=== PATIENT | male | born 1950 | race Caucasian/White ===

== ENCOUNTER 2016-04-14 12:07 | Inpatient (IN) | payer MEDICARE ==
[2016-04-14 13:21] LABS: Hematocrit 44 % (42-52); Hemoglobin 14.9 g/dl (14.0-18.0); Mean Corpuscular HGB Conc 34 g/dl (31-36); Mean Corpuscular Hemoglobin 30 pg (27-31); Mean Corpuscular Volume 88 fL (80-94); Mean Platelet Volume 10 um3 (7.4-10.4); Red Blood Count 4.98 10^6/ul (4.0-5.4); Red Cell Distribution Width 13 % (10.5-15)
[2016-04-14] MEDS: NS 0.9% 1000 ML* 2,000 ML IV ONE ×2 (13:33→16:29)
--- NOTE | 2016-04-14 13:37 | RAD ---
INDICATION: Confusion, pneumonia. COMPARISON: Comparison is made with a prior CT of the chest from June 25, 2004. TECHNIQUE: A portable view of the chest was obtained. FINDINGS: The heart is within normal limits in size. There is a retrocardiac density which correlates with a hiatal hernia which is seen on the prior CT study which is [id number] in size and unchanged from the prior exam. The lungs are clear. No pleural effusion is seen. IMPRESSION: 1. NO EVIDENCE FOR ACUTE FINDING. 2. HIATAL HERNIA.
[2016-04-14 13:42] LABS: ALT 16 U/L (7-52); AST 17 U/L (13-39); Alkaline Phosphatase 56 U/L (34-104); Anion Gap 5 mmol/L (2-11); BUN/Creatinine Ratio 14.9 (8-20); Blood Urea Nitrogen 11 mg/dL (6-24); CO2 Carbon Dioxide 27 mmol/L (22-32); Calcium 9.5 mg/dL (8.6-10.3); Chloride 106 mmol/L (101-111); Creatine Kinase 146 U/L (10-223); EGFR African American 136.5 (>60); EGFR Non-African American 106.2 (>60); Globulin 2.4 g/dL (2-4); Glucose 102 mg/dL (70-100); Magnesium 2.2 mg/dL (1.9-2.7); Sodium 138 mmol/L (133-145); Total Protein 6.4 g/dL (6.4-8.9)
--- NOTE | 2016-04-14 13:42 | RAD ---
HISTORY: Confusion, falls COMPARISONS: MRI dated September 18, 2015 TECHNIQUE: Multiple contiguous axial CT scans were obtained of the head without intravenous contrast. FINDINGS: HEMORRHAGE/INFARCT: There is no hemorrhage or acute infarct. MASSES/SHIFT: There is no mass or shift. EXTRA-AXIAL SPACES: There are no extra-axial fluid collections. SULCI AND VENTRICLES: There is mild diffuse and proportional enlargement of the sulci and ventricles. CEREBRUM: There are no focal parenchymal abnormalities. BRAINSTEM: There are no focal parenchymal abnormalities. CEREBELLUM: There are no focal parenchymal abnormalities. VESSELS: The vessels are grossly normal. PARANASAL SINUSES: The paranasal sinuses are clear. ORBITS: The orbits are unremarkable. BONES AND SOFT TISSUE: No bone or soft tissue abnormalities are noted. OTHER: None IMPRESSION: NO ACUTE INTRACRANIAL PATHOLOGY.
[2016-04-14 13:44] LABS: Troponin I 0.01 ng/mL (<0.04)
[2016-04-14 13:53] LABS: Acetaminophen < 15 mcg/mL; Alcohol < 10 mg/dL (<10); Salicylate < 2.50 mg/dL (<30)
[2016-04-14 14:03] LABS: TSH (Thyroid Stimulating Horm) 0.67 mcIU/mL (0.34-5.60)
[2016-04-14 15:55] LABS: Urine Bilirubin Negative (Negative); Urine Glucose Negative (Negative); Urine Nitrite Negative (Negative)
[2016-04-14 16:13] LABS: Benzodiazepine Urine Screen None Detected (None Detect)
--- NOTE | 2016-04-14 17:20 | ADMNOTE ---
Subjective Date of Service: 04/14/16 Interval History: ADMISSION HISTORY AND PHYSICAL EXAM: Allergies Allergy/AdvReac Type Severity Reaction Status Date / Time BEES Allergy Intermediate Swelling Uncoded 04/13/15 15:59 Home Medications Medication Instructions Recorded Confirmed Type Aspirin EC Low Dose* [Ecotrin EC 81 mg PO DAILY 04/14/16 04/14/16 History Low Dose 81 MG*] Metoprolol Succinate XL TAB* 25 mg PO DAILY 04/14/16 04/14/16 History [Toprol XL TAB*] Simvastatin TAB(NF) [Zocor(NF)] 20 mg PO BEDTIME 04/14/16 04/14/16 History HPI: The patient has had increasing difficulty managing ADL. He could not walk to the bus stop to go see his doctor but fell down before he got to the bus stop and his friend brought him home instead. He has see Dr. Blanc a few times but no definite dx was given. He gets 1 meal a day from [employer] and makes his other meals, but told his friend Janna that he was having a lot of trouble making a peanut butter sandwich. Janna thinks he may have lost some weight. Family History: Findings - unremarkable. Social History: Findings - Never smoked. Binge drinker until 06/2015. Lives alone. SDM is his daughter Patrica at [phone] Past Medical History: Findings - Cardiac stent 2000, cataract x 2, retinitis pigmentosa, cholecystectomy. Skin cancer followed by Dr. Grewal. 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 Thyroid: Positive: Normal Pulmonary: Positive: Normal Cardiology: Positive: Normal Gastroenterology: Positive: Normal Musculoskeletal: Negative: Joint Pain, Joint Stiffness, Arthritis, Osteoporosis, Low Back Pain , Sciatica, Joint Deformities, Kyphoscoliosis, Other Endocrinology: Positive: Normal Hematologic/Lymphatic: Negative: Anemia, Easy Brusing, Hx Leukemia, Hx Lymphoma, Use of Anticoagulant, Use of Antiplatelet Drugs, Other Neurology: Positive: Change in Memory, Unexplained Weakness Psychiatry: Positive: Normal Allergic/Immunologic: Negative: Hx Anaphylaxis, Hx Angioedema, Hx Environmental, Hx Seasonal, Athsma, Hx HIV, Immunocompromise, Swollen Glands LymphNodes, Other Objective Active Medications: Aspirin (Aspirin Ec Low Dose*) 81 mg PO DAILY [facility] Enoxaparin Sodium (Lovenox(*)) 40 mg SUBCUT Q24H [facility] Metoprolol Succinate (Toprol Xl Tab*) 25 mg PO DAILY [facility] Vital Signs 04/14/16 04/14/16 04/14/16 12:11 12:26 12:27 Temperature 98.2 F Pulse Rate 74 73 Respiratory 18 0 Rate Blood Pressure 148/88 135/80 (mmHg) O2 Sat by Pulse 95 97 Oximetry 04/14/16 04/14/16 04/14/16 12:30 13:00 13:43 Temperature Pulse Rate 75 78 Respiratory Rate Blood Pressure 136/74 140/84 149/82 (mmHg) O2 Sat by Pulse 95 96 Oximetry 04/14/16 04/14/16 04/14/16 13:46 13:49 13:52 Temperature Pulse Rate 81 83 83 Respiratory Rate Blood Pressure 150/93 145/86 145/86 (mmHg) O2 Sat by Pulse 97 99 Oximetry 04/14/16 04/14/16 04/14/16 14:00 14:30 15:00 Temperature Pulse Rate 86 88 88 Respiratory Rate Blood Pressure 153/84 151/88 147/84 (mmHg) O2 Sat by Pulse 98 98 96 Oximetry 04/14/16 04/14/16 04/14/16 15:30 16:00 16:30 Temperature Pulse Rate 83 Respiratory Rate Blood Pressure 150/81 152/90 152/105 (mmHg) O2 Sat by Pulse 97 Oximetry 04/14/16 16:32 Temperature Pulse Rate Respiratory Rate Blood Pressure 156/92 (mmHg) O2 Sat by Pulse Oximetry Oxygen Devices in Use Now: None Appearance: Alert, partly up on ED stretcher. Neutral affect. Looks comfortable. Eyes: No Scleral Icterus Ears/Nose/Mouth/Throat: Clear Oropharnyx, Mucous Membranes Moist Neck: NL Appearance and Movements; NL JVP, No Thyroid Enlargement, Masses Respiratory: Symmetrical Chest Expansion and Respiratory Effort, Clear to Auscultation, Clear to Percussion Cardiovascular: NL Sounds; No Murmurs; No JVD, RRR, No Edema, - Abdominal: NL Sounds; No Tenderness; No Distention, No Hepatosplenomegaly, - Extremities: No Edema, No Clubbing, Cyanosis, - Skin: No Nodules or Sclerosis, - - multiple red patches face and upper body, very fair complexion Neurological: Alert and Oriented x 3, NL Sensation, - - Can't count fingers, can see faces. No tremor. Result Diagrams: 04/14/16 13:00 04/14/16 13:00 Assess/Plan/Problems-Billing Assessment: - Patient Problems (1) Gait abnormality Current Visit: Yes Status: Acute Code(s): R26.9 - UNSPECIFIED ABNORMALITIES OF GAIT AND MOBILITY SNOMED Code(s): 67606003 Comment: PT charo. Neuro consult. (2) CAD (coronary artery disease) Current Visit: Yes Status: Acute Code(s): I25.10 - ATHSCL HEART DISEASE OF [place] CORONARY ARTERY W/O ANG PCTRS SNOMED Code(s): 89233445 Comment: Continue ASA, BB. Statin recently stopped due to concern over muscle weakness. I will ask Dr. Galevz if it is OK to re-start simvastatin 20 mg hs. (3) Retinitis pigmentosa Current Visit: Yes Status: Acute Code(s): H35.52 - PIGMENTARY RETINAL DYSTROPHY SNOMED Code(s): 47487174 Comment: Can see faces, can't count fingers. (4) Speaking difficulty Current Visit: Yes Status: Acute Comment: Speech is slow and dysarthric. Speech therapy consult requested.
--- NOTE | 2016-04-14 17:44 | ED ---
Reinaldo Cunha Billy, scribed for Caleb Caldwell MD on 04/14/16 at 1246 . Complex/Multi-Sys Presentation - HPI Summary HPI Summary: Patient is a 65 year-old male coming to [facility] from Dr. Blanc's office for evaluation of weakness, frequent falls, dizziness, and AMS gradually worsening over the last 3 weeks. Patient, however, denies any significant pain or injury due to the falls. He recently was taken off of his statins and azilect. Denies any dizziness or lightheadedness at this time. Denies nausea. He states he has had an unsteady gait, but this has been ongoing for the last year. He reports increased urinary frequency. He states he has been spending time with his brother in the last several weeks, although the aide states that these are hallucinations since the patient has not seen his brother in 25 years. Patient is legally blind. - History Of Current Complaint Chief Complaint: EDWeakness Time Seen by Provider: 04/14/16 12:21 Hx Obtained From: Patient, Family/Surgeon Partner Onset/Duration: Gradual Onset, Lasting Weeks, Still Present Timing: Constant Severity Currently: Moderate Severity Initially: Moderate Aggravating Factor(s): none Alleviating Factor(s): none Associated Signs And Symptoms: Positive: Weakness, Other - unsteady gait, urinary frequency. Negative: Dizziness, Headache, Chest Pain, Nausea - Allergies/Home Medications Allergies/Adverse Reactions: Allergies Allergy/AdvReac Type Severity Reaction Status Date / Time BEES Allergy Intermediate Swelling Uncoded 04/13/15 15:59 Home Medications: Home Medications Aspirin EC Low Dose* [Ecotrin EC Low Dose 81 MG*] 81 mg PO DAILY 04/14/16 [ History Confirmed 04/14/16] Metoprolol Succinate XL TAB* [Toprol XL TAB*] 25 mg PO DAILY 04/14/16 [History Confirmed 04/14/16] Simvastatin TAB(NF) [Zocor(NF)] 20 mg PO BEDTIME 04/14/16 [History Confirmed 10/23] PMH/Surg Hx/FS Hx/Imm Hx Endocrine/Hematology History: Denies: Hx Diabetes, Hx Systemic Lupus Erythematosus Cardiovascular History: Denies: Hx Congestive Heart Failure, Hx Hypertension, Hx Pacemaker/ICD Respiratory History: Reports: Hx Sleep Apnea - HISTORY OF DOESN'T USE A MACHINE Musculoskeletal History: Denies: Hx Rheumatoid Arthritis Sensory History: Reports: Hx Cataracts - CURRENTLY, Hx Contacts or Glasses - GLASSES Denies: Hx Hearing Aid Opthamlomology History: Reports: Hx Cataracts - CURRENTLY, Hx Contacts or Glasses - GLASSES Psychiatric History: Denies: Hx Panic Disorder - Cancer History Cancer Type, Location and Year: skin CA - Surgical History Surgery Procedure, Year, and Place: CHOLECYSECTOMY 2009 [facility] [place]. CARDIAC STENT 2000 [facility]. excisional biopsy of skin CA right collar bone, skin ca removed right cheek and skull cateract surgury 2 yrs ago. RP DISEASE DIGANOSED IN THE YEAR 1979 Hx Anesthesia Reactions: No Infectious Disease History: No Infectious Disease History: Denies: Traveled Outside the in Last 30 Days - Family History Known Family History: Positive: Cardiac Disease - Social History Lives: Alone Alcohol Use: Occasionally Substance Use Type: Reports: None Hx Tobacco Use: No Smoking Status (MU): Never Smoked Tobacco Review of Systems Negative: Fever, Chills Positive: Other - legally blind Negative: Abdominal Pain, Vomiting, Diarrhea, Nausea Positive: frequency Negative: Edema Neurological: Other - unsteady gait Negative: Headache Psychological: Other - hallucinations (see HPI) All Other Systems Reviewed And Are Negative: Yes Physical Exam - Summary Physical Exam Summary: The patient is well-nourished in no acute distress and in no acute pain. The skin is warm and dry and skin color reflects adequate perfusion. HEENT: The head is normocephalic and atraumatic. The conjunctivae are clear and without drainage. Pupils not reactive to light, EOMI not assessed. Nares are patent with rhinorrhea. Mouth reveals moist mucous membranes and the throat is without erythema and exudate. The external ears are intact. The ear canals are patent and without drainage. The tympanic membranes are intact. No sinus percussion tenderness. Neck is supple with full range of motion and non-tender. There are no carotid bruits. There is no neck vein distension. Respiratory: Chest is non-tender. Lungs are clear to auscultation and breath sounds are symmetrical and equal. Cardiovascular: Heart is regular rate and rhythm. There is no murmur or rub auscultated. There is no peripheral edema and pulses are symmetrical and equal. Abdomen: The abdomen is soft and non-tender. There are normal bowel sounds heard in all four quadrants and there is no organomegaly palpated. Musculoskeletal: There is no back pain noted. Extremities are non-tender with full range of motion. There is good capillary refill, <2 seconds. There is mild ankle edema bilaterally. No calf tenderness elicited. Neurological: Patient is alert and oriented to person, place and time. The patient has symmetrical motor strength in all four extremities. Cranial nerves are grossly intact. [id number] and wddk-[id number] intact. No facial droop. Some mild confusion when answering questions. Psychiatric: The patient has an appropriate affect and does not exhibit any anxiety or depression. Triage Information Reviewed: Yes Vital Signs On Initial Exam: Initial Vitals Temp Pulse Resp BP Pulse Ox 98.2 F 74 18 148/88 95 04/14/16 12:11 04/14/16 12:11 04/14/16 12:11 04/14/16 12:11 04/14/16 12:11 Vital Signs Reviewed: Yes Diagnostics - Vital Signs Vital Signs Temp Pulse Resp BP Pulse Ox 04/14/16 12:11 98.2 F 74 18 148/88 95 - Laboratory Lab Results: Lab Results 04/14/16 04/14/16 04/14/16 Range/Units 13:00 13:00 13:00 WBC 6.0 (3.5-10.8) 10^3/ul RBC 4.98 (4.0-5.4) 10^6/ul Hgb 14.9 (14.0-18.0) g/dl Hct 44 (42-52) % MCV 88 (80-94) fL MCH 30 (27-31) pg MCHC 34 (31-36) g/dl RDW 13 (10.5-15) % Plt Count 189 (150-450) 10^3/ul MPV 10 (7.4-10.4) um3 Neut % (Auto) 68.9 (38-83) % Lymph % (Auto) 21.9 L (25-47) % [place] % (Auto) 7.5 (1-9) % Eos % (Auto) 1.2 (0-6) % Baso % (Auto) 0.5 (0-2) % Absolute Neuts (auto) 4.1 (1.5-7.7) 10^3/ul Absolute Lymphs (auto) 1.3 (1.0-4.8) 10^3/ul Absolute Monos (auto) 0.4 (0-0.8) 10^3/ul Absolute Eos (auto) 0.1 (0-0.6) 10^3/ul Absolute Basos (auto) 0 (0-0.2) 10^3/ul Absolute Nucleated RBC 0.01 10^3/ul Nucleated RBC % 0.2 INR (Anticoag Therapy) 0.97 (0.89-1.11) Sodium 138 (133-145) mmol/L Potassium 4.0 (3.5-5.0) mmol/L Chloride 106 (101-111) mmol/L Carbon Dioxide 27 (22-32) mmol/L Anion Gap 5 (2-11) mmol/L BUN 11 (6-24) mg/dL Creatinine 0.74 (0.67-1.17) mg/dL Est GFR ( Amer) 136.5 (>60) Est GFR (Non-Af Amer) 106.2 (>60) BUN/Creatinine Ratio 14.9 (8-20) Glucose 102 H (70-100) mg/dL Lactic Acid (0.5-2.0) mmol/L Calcium 9.5 (8.6-10.3) mg/dL Magnesium 2.2 (1.9-2.7) mg/dL Total Bilirubin 0.70 (0.2-1.0) mg/dL AST 17 (13-39) U/L ALT 16 (7-52) U/L Alkaline Phosphatase 56 (34-104) U/L Total Creatine Kinase 146 (10-223) U/L Troponin I 0.01 (<0.04) ng/mL B-Natriuretic Peptide ( - 100) pg/mL Total Protein 6.4 (6.4-8.9) g/dL Albumin 4.0 (3.2-5.2) g/dL Globulin 2.4 (2-4) g/dL Albumin/Globulin Ratio 1.7 (1-3) TSH 0.67 (0.34-5.60) mcIU/mL Urine Color Urine Appearance Urine pH (5-9) Ur Specific [place] (1.010-1.030) Urine Protein (Negative) Urine Ketones (Negative) Urine Blood (Negative) Urine Nitrate (Negative) Urine Bilirubin (Negative) Urine Urobilinogen (Negative) Ur Leukocyte Esterase (Negative) Urine Glucose (Negative) Urine Ascorbic Acid (Negative) Salicylates < 2.50 (<30) mg/dL Urine Opiates Screen (None Detect) Acetaminophen < 15 mcg/mL Ur Barbiturates Screen (None Detect) Ur Phencyclidine Scrn (None Detect) Ur Amphetamines Screen (None Detect) U Benzodiazepines Scrn (None Detect) Urine Cocaine Screen (None Detect) U Cannabinoids Screen (None Detect) Serum Alcohol < 10 (<10) mg/dL 04/14/16 04/14/16 04/14/16 Range/Units 13:00 13:00 15:43 WBC (3.5-10.8) 10^3/ul RBC (4.0-5.4) 10^6/ul Hgb (14.0-18.0) g/dl Hct (42-52) % MCV (80-94) fL MCH (27-31) pg MCHC (31-36) g/dl RDW (10.5-15) % Plt Count (150-450) 10^3/ul MPV (7.4-10.4) um3 Neut % (Auto) (38-83) % Lymph % (Auto) (25-47) % [place] % (Auto) (1-9) % Eos % (Auto) (0-6) % Baso % (Auto) (0-2) % Absolute Neuts (auto) (1.5-7.7) 10^3/ul Absolute Lymphs (auto) (1.0-4.8) 10^3/ul Absolute Monos (auto) (0-0.8) 10^3/ul Absolute Eos (auto) (0-0.6) 10^3/ul Absolute Basos (auto) (0-0.2) 10^3/ul Absolute Nucleated RBC 10^3/ul Nucleated RBC % INR (Anticoag Therapy) (0.89-1.11) Sodium (133-145) mmol/L Potassium (3.5-5.0) mmol/L Chloride (101-111) mmol/L Carbon Dioxide (22-32) mmol/L Anion Gap (2-11) mmol/L BUN (6-24) mg/dL Creatinine (0.67-1.17) mg/dL Est GFR ( Amer) (>60) Est GFR (Non-Af Amer) (>60) BUN/Creatinine Ratio (8-20) Glucose (70-100) mg/dL Lactic Acid 0.9 (0.5-2.0) mmol/L Calcium (8.6-10.3) mg/dL Magnesium (1.9-2.7) mg/dL Total Bilirubin (0.2-1.0) mg/dL AST (13-39) U/L ALT (7-52) U/L Alkaline Phosphatase (34-104) U/L Total Creatine Kinase (10-223) U/L Troponin I (<0.04) ng/mL B-Natriuretic Peptide 18 ( - 100) pg/mL Total Protein (6.4-8.9) g/dL Albumin (3.2-5.2) g/dL Globulin (2-4) g/dL Albumin/Globulin Ratio (1-3) TSH (0.34-5.60) mcIU/mL Urine Color Yellow Urine Appearance Cloudy Urine pH 6.0 (5-9) Ur Specific Emerson 1.019 (1.010-1.030) Urine Protein Negative (Negative) Urine Ketones Negative (Negative) Urine Blood Negative (Negative) Urine Nitrate Negative (Negative) Urine Bilirubin Negative (Negative) Urine Urobilinogen Negative (Negative) Ur Leukocyte Esterase Negative (Negative) Urine Glucose Negative (Negative) Urine Ascorbic Acid * H (Negative) Salicylates (<30) mg/dL Urine Opiates Screen (None Detect) Acetaminophen mcg/mL Ur Barbiturates Screen (None Detect) Ur Phencyclidine Scrn (None Detect) Ur Amphetamines Screen (None Detect) U Benzodiazepines Scrn (None Detect) Urine Cocaine Screen (None Detect) U Cannabinoids Screen (None Detect) Serum Alcohol (<10) mg/dL 04/14/16 Range/Units 15:43 WBC (3.5-10.8) 10^3/ul RBC (4.0-5.4) 10^6/ul Hgb (14.0-18.0) g/dl Hct (42-52) % MCV (80-94) fL MCH (27-31) pg MCHC (31-36) g/dl RDW (10.5-15) % Plt Count (150-450) 10^3/ul MPV (7.4-10.4) um3 Neut % (Auto) (38-83) % Lymph % (Auto) (25-47) % [place] % (Auto) (1-9) % Eos % (Auto) (0-6) % Baso % (Auto) (0-2) % Absolute Neuts (auto) (1.5-7.7) 10^3/ul Absolute Lymphs (auto) (1.0-4.8) 10^3/ul Absolute Monos (auto) (0-0.8) 10^3/ul Absolute Eos (auto) (0-0.6) 10^3/ul Absolute Basos (auto) (0-0.2) 10^3/ul Absolute Nucleated RBC 10^3/ul Nucleated RBC % INR (Anticoag Therapy) (0.89-1.11) Sodium (133-145) mmol/L Potassium (3.5-5.0) mmol/L Chloride (101-111) mmol/L Carbon Dioxide (22-32) mmol/L Anion Gap (2-11) mmol/L BUN (6-24) mg/dL Creatinine (0.67-1.17) mg/dL Est GFR ( Amer) (>60) Est GFR (Non-Af Amer) (>60) BUN/Creatinine Ratio (8-20) Glucose (70-100) mg/dL Lactic Acid (0.5-2.0) mmol/L Calcium (8.6-10.3) mg/dL Magnesium (1.9-2.7) mg/dL Total Bilirubin (0.2-1.0) mg/dL AST (13-39) U/L ALT (7-52) U/L Alkaline Phosphatase (34-104) U/L Total Creatine Kinase (10-223) U/L Troponin I (<0.04) ng/mL B-Natriuretic Peptide ( - 100) pg/mL Total Protein (6.4-8.9) g/dL Albumin (3.2-5.2) g/dL Globulin (2-4) g/dL Albumin/Globulin Ratio (1-3) TSH (0.34-5.60) mcIU/mL Urine Color Urine Appearance Urine pH (5-9) Ur Specific [place] (1.010-1.030) Urine Protein (Negative) Urine Ketones (Negative) Urine Blood (Negative) Urine Nitrate (Negative) Urine Bilirubin (Negative) Urine Urobilinogen (Negative) Ur Leukocyte Esterase (Negative) Urine Glucose (Negative) Urine Ascorbic Acid (Negative) Salicylates (<30) mg/dL Urine Opiates Screen None detected (None Detect) Acetaminophen mcg/mL Ur Barbiturates Screen None detected (None Detect) Ur Phencyclidine Scrn None detected (None Detect) Ur Amphetamines Screen None detected (None Detect) U Benzodiazepines Scrn None detected (None Detect) Urine Cocaine Screen None detected (None Detect) U Cannabinoids Screen None detected (None Detect) Serum Alcohol (<10) mg/dL Result Diagrams: 04/14/16 13:00 04/14/16 13:00 Lab Statement: Any lab studies that have been ordered have been reviewed, and results considered in the medical decision making process. - Radiology CXR Xray Interpretation: No Acute Changes Radiology Interpretation Completed By: Radiologist - CT brain CT Interpretation Completed By: Radiologist - No evidence of acute findings. Hiatal hernia. - EKG 1241 EKG Interpretation: NSR 75 bpm, no ST elevation, poor R-wave progression Complex Multi-Symp Course/Dx Assessment/Plan: Patient is a 65 year-old male coming to [facility] from Dr. Blanc 's office for evaluation of weakness, frequent falls, dizziness, and AMS gradually worsening over the last [address] brain show no acute findings. EKG shows NSR with poor R-wave progression, no ST elevation. Case discussed with Dr. Murphy and Dr. Galvez. - Diagnoses Differential Diagnoses/HQI/PQRI: Metabolic Abnormality, Urinary Tract Infection , Other - cva, parkinson's, ambulatory dysfunction Provider Diagnoses: Altered mental status, unspecified, Ambulatory dysfunction, Failure to thrive - Physician Notifications Discussed Care Of Patient With: Dr. Murphy (hospitalist) @ 1511: recommends neurology consult. Dr. Galvez (neurology) @ 1514: will see patient in the ED. Dr. Galvez (neurology) @ 1605: recommends admission. Discharge - Discharge Plan Condition: Stable Disposition: ADMITTED TO [facility] Referrals: Mahi Lopez MD [Primary Care Provider] - The documentation as recorded by the Reinaldo mancuso Billy accurately reflects the service I personally performed and the decisions made by me, Caleb Caldwell MD.
[2016-04-14] MEDS: Enoxaparin(*) 40 MG/0.4 ML SYR SUBCUT SCH (21:35)
--- NOTE | 2016-04-14 22:39 | CONS ---
NEUROLOGY CONSULTATION: DATE OF CONSULT: 04/14/16 LOCATION: He is in emergency room to be admitted. REFERRING PROVIDER: Dr. Caleb Caldwell. CHIEF COMPLAINT: Repetitive falls, hallucinations. HISTORY OF PRESENT ILLNESS: Ciro Abrams is a 65-year-old right-handed man, who presents because of progressive and accelerating decline in his cognitive and extrapyramidal disorder. The history is from the patient as well as discussion with Dr. Blanc and from office records. His friend is also present, provides good detail. He started having problems with his vision back in May of 2015 secondary to retinitis pigmentosa. That progressed to where he was legally blind by later in 2015. In addition, he started to have problems with repetitive falls. He was found to have features of an extrapyramidal disorder by Dr. Blanc when he evaluated him, I believe, back in about September. He had an MRI of his brain at that time, which revealed some atrophy and nonspecific white matter changes. He had a number of other laboratory studies including a normal B12, methylmalonic acid, serum protein electrophoresis, and other routine labs, which were normal. He had a perineoplastic antibody profile on 09/18/15, which was negative. He had a negative test for neurosyphilis on 09/18/15 as well. He continued to decline and developed memory problems and ultimately hallucinations and delusions. His friend says that he sees his brother in their apartment and has conversations with him. Ciro admits to seeing things, mainly consisting of his brother, but he says they do not speak to him. He has had repetitive falls and he says he cannot stop going forward. With specific questioning, he notes that his left arm is slow and clumsy and does not work as well as his right Apparently, tremor has not been much of a problem. He denies problems with swallowing or choking. PAST MEDICAL HISTORY: Notable for squamous cell carcinoma of the skin, hyperlipidemia. MEDICATIONS: At home, consist of: 1. Aspirin 81 mg p.o. q. day. 2. Metoprolol XL 20 mg p.o. q. day. 3. He was on Aricept but that was stopped recently. 4. He was on a statin and that was stopped about 3 weeks ago because of what appeared to be progressive weakness. FAMILY HISTORY: Notable for retinitis pigmentosa in a nephew. One sister has multiple sclerosis. REVIEW OF SYSTEMS: Negative for numbness or pain in his feet or hands. No problems with swallowing. He does get short of breath at times. No dizziness but they do use the term dizzy to describe his falls at times. He does not feel faint or experience vertigo, however. PHYSICAL EXAM: He is well nourished and seems relatively well hydrated. Blood pressure is 160/90 on the monitor, heart rate 80 and regular, respiratory rate is about 14. Oxygen saturation is 99% on room air. Heart sounds to be in a regular rate and rhythm without murmurs heard. There are no carotid bruits auscultated. Oral mucosa is moist and atraumatic. He has bilateral 1+ ankle edema. He has hammertoe deformities bilaterally. Neurologic Exam: Pupils react to light from about 3 to 2 mm. I cannot see the right fundus due to bubbly opacity of the right lens. The left fundus reveals spiculated black pigment throughout the retina. Eye movements seem somewhat limited in downgaze but otherwise are full. There is no nystagmus. Facial musculature is symmetric with grade 3 hypomimia. Facial sensation to light touch is intact. Hearing seems intact. Palate and tongue appear normal, tongue protrudes in the midline. Speech is soft and monotone. Motor exam reveals cogwheel rigidity particularly of the left arm and leg, to a lesser extent the right leg, and to the least extent the right arm. There is no tremor noted. There is a 90-degree left ankle contracture. He has good strength proximally and distally in upper extremities. Finger taps are slower in the left hand than the right. There are no dyskinesias noted. Reflexes are hypoactive and absent at the ankles. Plantars are equivocal bilaterally. He is relatively alert, but psychomotorically slow. He answers questions with reasonable answers but his friend has to correct him at times. Language is generally decreased in output but fluent. DIAGNOSTIC STUDIES/LAB DATA: Includes a normal CBC, INR, and chemistry profile other than a nonfasting glucose of 102. Earlier this year, other studies mentioned above, which are normal. A urinalysis today is normal. EKG is unremarkable. He had a negative perineoplastic antibody profile as mentioned above. Chest x-ray today notable for evidence of hiatal hernia, and is otherwise unremarkable. MRI from last year as described above. CT scan from today revealed atrophy prominent bifrontally but also present in general. 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 Lewy body disease is a possibility as well. RECOMMENDATIONS: I do not see anything acute. However, with his blindness and parkinsonism and repeated falls, he is really not safe to go home. Discussed his situation with Dr. Caldwell and he is going to speak with the hospitalist about admitting for possible placement considerations. He might benefit from repeat MR imaging in terms of sorting out the etiology behind his neurodegenerative condition and at some point, he might benefit from a trial of Sinemet but these are longer- term issues and can be addressed in the future. CC: Dr. Mahi Lopez; Dr. Miguelina Blanc* [id number]/CPS #: [id number] [facility] STATE HOSPITALJessi
[2016-04-15] MEDS: Aspirin EC Low Dose* 81 MG TAB.EC PO SCH (07:43)
[2016-04-15] MEDS: Metoprolol Succinate XL TAB* 25 MG PO SCH (07:43)
--- NOTE | 2016-04-15 12:17 | PN ---
Subjective Date of Service: 04/15/16 Interval History: No new medical c/o. Pt would like to go home, states he can manage there. Family History: Findings - unremarkable. Social History: Findings - Never smoked. Binge drinker until 06/2015. Lives alone. SDM is his daughter Patrica at [phone] Past Medical History: Findings - Cardiac stent 2000, cataract x 2, retinitis pigmentosa, cholecystectomy. Skin cancer followed by Dr. Grewal. Objective Active Medications: Aspirin (Aspirin Ec Low Dose*) 81 mg PO DAILY [facility] Last Admin: 04/15/16 07:43 Dose: 81 mg Enoxaparin Sodium (Lovenox(*)) 40 mg SUBCUT Q24H [facility] Last Admin: 04/14/16 21:35 Dose: 40 mg Metoprolol Succinate (Toprol Xl Tab*) 25 mg PO DAILY [facility] Last Admin: 04/15/16 07:43 Dose: 25 mg Vital Signs 04/14/16 04/14/16 04/14/16 18:25 18:29 18:35 Temperature 98.1 F 98.1 F Pulse Rate 84 84 Respiratory 18 18 18 Rate Blood Pressure 161/93 161/93 (mmHg) O2 Sat by Pulse 98 98 Oximetry 04/14/16 04/14/16 04/15/16 20:00 23:28 03:07 Temperature 97.9 F Pulse Rate 73 Respiratory 20 20 18 Rate Blood Pressure 148/71 (mmHg) O2 Sat by Pulse 97 Oximetry 04/15/16 04/15/16 07:46 07:47 Temperature 98.1 F Pulse Rate 63 Respiratory 16 18 Rate Blood Pressure 141/78 (mmHg) O2 Sat by Pulse 97 Oximetry Oxygen Devices in Use Now: None Appearance: Alert, sitting up in bed. In fair spirits. Looks comfortable. Neck: NL Appearance and Movements; NL JVP, No Thyroid Enlargement, Masses Respiratory: Symmetrical Chest Expansion and Respiratory Effort, Clear to Auscultation, Clear to Percussion Cardiovascular: NL Sounds; No Murmurs; No JVD, RRR, No Edema, - Neurological: Alert and Oriented x 3, NL Sensation Result Diagrams: 04/14/16 13:00 04/14/16 13:00 Additional Lab and Data: Lab Results 04/14/16 04/14/16 04/14/16 Range/Units 13:00 13:00 13:00 WBC 6.0 (3.5-10.8) 10^3/ul RBC 4.98 (4.0-5.4) 10^6/ul Hgb 14.9 (14.0-18.0) g/dl Hct 44 (42-52) % MCV 88 (80-94) fL MCH 30 (27-31) pg MCHC 34 (31-36) g/dl RDW 13 (10.5-15) % Plt Count 189 (150-450) 10^3/ul MPV 10 (7.4-10.4) um3 Neut % (Auto) 68.9 (38-83) % Lymph % (Auto) 21.9 L (25-47) % [place] % (Auto) 7.5 (1-9) % Eos % (Auto) 1.2 (0-6) % Baso % (Auto) 0.5 (0-2) % Absolute Neuts (auto) 4.1 (1.5-7.7) 10^3/ul Absolute Lymphs (auto) 1.3 (1.0-4.8) 10^3/ul Absolute Monos (auto) 0.4 (0-0.8) 10^3/ul Absolute Eos (auto) 0.1 (0-0.6) 10^3/ul Absolute Basos (auto) 0 (0-0.2) 10^3/ul Absolute Nucleated RBC 0.01 10^3/ul Nucleated RBC % 0.2 INR (Anticoag Therapy) 0.97 (0.89-1.11) Sodium 138 (133-145) mmol/L Potassium 4.0 (3.5-5.0) mmol/L Chloride 106 (101-111) mmol/L Carbon Dioxide 27 (22-32) mmol/L Anion Gap 5 (2-11) mmol/L BUN 11 (6-24) mg/dL Creatinine 0.74 (0.67-1.17) mg/dL Est GFR ( Amer) 136.5 (>60) Est GFR (Non-Af Amer) 106.2 (>60) BUN/Creatinine Ratio 14.9 (8-20) Glucose 102 H (70-100) mg/dL Lactic Acid (0.5-2.0) mmol/L Calcium 9.5 (8.6-10.3) mg/dL Magnesium 2.2 (1.9-2.7) mg/dL Total Bilirubin 0.70 (0.2-1.0) mg/dL AST 17 (13-39) U/L ALT 16 (7-52) U/L Alkaline Phosphatase 56 (34-104) U/L Total Creatine Kinase 146 (10-223) U/L Troponin I 0.01 (<0.04) ng/mL B-Natriuretic Peptide ( - 100) pg/mL Total Protein 6.4 (6.4-8.9) g/dL Albumin 4.0 (3.2-5.2) g/dL Globulin 2.4 (2-4) g/dL Albumin/Globulin Ratio 1.7 (1-3) TSH 0.67 (0.34-5.60) mcIU/mL Urine Color Urine Appearance Urine pH (5-9) Ur Specific [place] (1.010-1.030) Urine Protein (Negative) Urine Ketones (Negative) Urine Blood (Negative) Urine Nitrate (Negative) Urine Bilirubin (Negative) Urine Urobilinogen (Negative) Ur Leukocyte Esterase (Negative) Urine Glucose (Negative) Urine Ascorbic Acid (Negative) Salicylates < 2.50 (<30) mg/dL Urine Opiates Screen (None Detect) Acetaminophen < 15 mcg/mL Ur Barbiturates Screen (None Detect) Ur Phencyclidine Scrn (None Detect) Ur Amphetamines Screen (None Detect) U Benzodiazepines Scrn (None Detect) Urine Cocaine Screen (None Detect) U Cannabinoids Screen (None Detect) Serum Alcohol < 10 (<10) mg/dL 04/14/16 04/14/16 04/14/16 Range/Units 13:00 13:00 15:43 WBC (3.5-10.8) 10^3/ul RBC (4.0-5.4) 10^6/ul Hgb (14.0-18.0) g/dl Hct (42-52) % MCV (80-94) fL MCH (27-31) pg MCHC (31-36) g/dl RDW (10.5-15) % Plt Count (150-450) 10^3/ul MPV (7.4-10.4) um3 Neut % (Auto) (38-83) % Lymph % (Auto) (25-47) % [place] % (Auto) (1-9) % Eos % (Auto) (0-6) % Baso % (Auto) (0-2) % Absolute Neuts (auto) (1.5-7.7) 10^3/ul Absolute Lymphs (auto) (1.0-4.8) 10^3/ul Absolute Monos (auto) (0-0.8) 10^3/ul Absolute Eos (auto) (0-0.6) 10^3/ul Absolute Basos (auto) (0-0.2) 10^3/ul Absolute Nucleated RBC 10^3/ul Nucleated RBC % INR (Anticoag Therapy) (0.89-1.11) Sodium (133-145) mmol/L Potassium (3.5-5.0) mmol/L Chloride (101-111) mmol/L Carbon Dioxide (22-32) mmol/L Anion Gap (2-11) mmol/L BUN (6-24) mg/dL Creatinine (0.67-1.17) mg/dL Est GFR ( Amer) (>60) Est GFR (Non-Af Amer) (>60) BUN/Creatinine Ratio (8-20) Glucose (70-100) mg/dL Lactic Acid 0.9 (0.5-2.0) mmol/L Calcium (8.6-10.3) mg/dL Magnesium (1.9-2.7) mg/dL Total Bilirubin (0.2-1.0) mg/dL AST (13-39) U/L ALT (7-52) U/L Alkaline Phosphatase (34-104) U/L Total Creatine Kinase (10-223) U/L Troponin I (<0.04) ng/mL B-Natriuretic Peptide 18 ( - 100) pg/mL Total Protein (6.4-8.9) g/dL Albumin (3.2-5.2) g/dL Globulin (2-4) g/dL Albumin/Globulin Ratio (1-3) TSH (0.34-5.60) mcIU/mL Urine Color Yellow Urine Appearance Cloudy Urine pH 6.0 (5-9) Ur Specific [place] 1.019 (1.010-1.030) Urine Protein Negative (Negative) Urine Ketones Negative (Negative) Urine Blood Negative (Negative) Urine Nitrate Negative (Negative) Urine Bilirubin Negative (Negative) Urine Urobilinogen Negative (Negative) Ur Leukocyte Esterase Negative (Negative) Urine Glucose Negative (Negative) Urine Ascorbic Acid * H (Negative) Salicylates (<30) mg/dL Urine Opiates Screen (None Detect) Acetaminophen mcg/mL Ur Barbiturates Screen (None Detect) Ur Phencyclidine Scrn (None Detect) Ur Amphetamines Screen (None Detect) U Benzodiazepines Scrn (None Detect) Urine Cocaine Screen (None Detect) U Cannabinoids Screen (None Detect) Serum Alcohol (<10) mg/dL 04/14/16 Range/Units 15:43 WBC (3.5-10.8) 10^3/ul RBC (4.0-5.4) 10^6/ul Hgb (14.0-18.0) g/dl Hct (42-52) % MCV (80-94) fL MCH (27-31) pg MCHC (31-36) g/dl RDW (10.5-15) % Plt Count (150-450) 10^3/ul MPV (7.4-10.4) um3 Neut % (Auto) (38-83) % Lymph % (Auto) (25-47) % [place] % (Auto) (1-9) % Eos % (Auto) (0-6) % Baso % (Auto) (0-2) % Absolute Neuts (auto) (1.5-7.7) 10^3/ul Absolute Lymphs (auto) (1.0-4.8) 10^3/ul Absolute Monos (auto) (0-0.8) 10^3/ul Absolute Eos (auto) (0-0.6) 10^3/ul Absolute Basos (auto) (0-0.2) 10^3/ul Absolute Nucleated RBC 10^3/ul Nucleated RBC % INR (Anticoag Therapy) (0.89-1.11) Sodium (133-145) mmol/L Potassium (3.5-5.0) mmol/L Chloride (101-111) mmol/L Carbon Dioxide (22-32) mmol/L Anion Gap (2-11) mmol/L BUN (6-24) mg/dL Creatinine (0.67-1.17) mg/dL Est GFR ( Amer) (>60) Est GFR (Non-Af Amer) (>60) BUN/Creatinine Ratio (8-20) Glucose (70-100) mg/dL Lactic Acid (0.5-2.0) mmol/L Calcium (8.6-10.3) mg/dL Magnesium (1.9-2.7) mg/dL Total Bilirubin (0.2-1.0) mg/dL AST (13-39) U/L ALT (7-52) U/L Alkaline Phosphatase (34-104) U/L Total Creatine Kinase (10-223) U/L Troponin I (<0.04) ng/mL B-Natriuretic Peptide ( - 100) pg/mL Total Protein (6.4-8.9) g/dL Albumin (3.2-5.2) g/dL Globulin (2-4) g/dL Albumin/Globulin Ratio (1-3) TSH (0.34-5.60) mcIU/mL Urine Color Urine Appearance Urine pH (5-9) Ur Specific [place] (1.010-1.030) Urine Protein (Negative) Urine Ketones (Negative) Urine Blood (Negative) Urine Nitrate (Negative) Urine Bilirubin (Negative) Urine Urobilinogen (Negative) Ur Leukocyte Esterase (Negative) Urine Glucose (Negative) Urine Ascorbic Acid (Negative) Salicylates (<30) mg/dL Urine Opiates Screen None detected (None Detect) Acetaminophen mcg/mL Ur Barbiturates Screen None detected (None Detect) Ur Phencyclidine Scrn None detected (None Detect) Ur Amphetamines Screen None detected (None Detect) U Benzodiazepines Scrn None detected (None Detect) Urine Cocaine Screen None detected (None Detect) U Cannabinoids Screen None detected (None Detect) Serum Alcohol (<10) mg/dL Assess/Plan/Problems-Billing Assessment: - Patient Problems (1) Gait abnormality Current Visit: Yes Status: Acute Code(s): R26.9 - UNSPECIFIED ABNORMALITIES OF GAIT AND MOBILITY SNOMED Code(s): 89755346 Comment: PT charo. Discussed with Dr. Galvez. He feels the patient has some neurodegenerative disorder, likely will be progressive and can only be treated symptomatically. I will ask for psychiatry consult for capacity to refuse SNF-rehab placement. (2) CAD (coronary artery disease) Current Visit: Yes Status: Acute Code(s): I25.10 - ATHSCL HEART DISEASE OF [place] CORONARY ARTERY W/O ANG PCTRS SNOMED Code(s): 24615068 Comment: Continue ASA, BB. Re-start simvastatin 20 mg hs (sub atorvastatin 10 mg). (3) Retinitis pigmentosa Current Visit: Yes Status: Acute Code(s): H35.52 - PIGMENTARY RETINAL DYSTROPHY SNOMED Code(s): 87490342 Comment: Can see faces, can't count fingers. (4) Speaking difficulty Current Visit: Yes Status: Acute Comment: Speech is slow and dysarthric. Speech therapy consult requested.
[2016-04-15] MEDS: Atorvastatin* 10 MG TAB PO SCH (17:29)
[2016-04-15] MEDS: Enoxaparin(*) 40 MG/0.4 ML SYR SUBCUT SCH (17:29)
[2016-04-16] MEDS: Metoprolol Succinate XL TAB* 25 MG PO SCH (10:05)
[2016-04-16] MEDS: Aspirin EC Low Dose* 81 MG TAB.EC PO SCH (10:05)
--- NOTE | 2016-04-16 14:53 | PN ---
Subjective Date of Service: 04/16/16 Interval History: Patient without new complaints Family History: Findings - unremarkable. Social History: Findings - Never smoked. Binge drinker until 06/2015. Lives alone. SDM is his daughter Patrica at [phone] Past Medical History: Findings - Cardiac stent 2000, cataract x 2, retinitis pigmentosa, cholecystectomy. Skin cancer followed by Dr. Grewal. Objective Active Medications: Aspirin (Aspirin Ec Low Dose*) 81 mg PO DAILY [facility] Last Admin: 04/16/16 10:05 Dose: 81 mg Atorvastatin Calcium (Lipitor*) 10 mg PO 1700 [facility] Last Admin: 04/15/16 17:29 Dose: 10 mg Enoxaparin Sodium (Lovenox(*)) 40 mg SUBCUT Q24H [facility] Last Admin: 04/15/16 17:29 Dose: 40 mg Metoprolol Succinate (Toprol Xl Tab*) 25 mg PO DAILY [facility] Last Admin: 04/16/16 10:05 Dose: 25 mg Vital Signs 04/15/16 04/15/16 04/15/16 15:12 19:27 20:00 Temperature 98.2 F 97.8 F Pulse Rate 77 74 Respiratory 20 20 19 Rate Blood Pressure 149/83 126/62 (mmHg) O2 Sat by Pulse 99 97 Oximetry 04/15/16 04/16/16 23:28 07:46 Temperature 98.1 F 98.0 F Pulse Rate 68 117 Respiratory 19 16 Rate Blood Pressure 141/81 133/76 (mmHg) O2 Sat by Pulse 98 96 Oximetry Oxygen Devices in Use Now: None Appearance: WD/WN gentleman sitting up in bed in NAD Eyes: No Scleral Icterus Ears/Nose/Mouth/Throat: Clear Oropharnyx Neck: No Thyroid Enlargement, Masses Respiratory: Clear to Auscultation Cardiovascular: NL Sounds; No Murmurs; No JVD, No Edema Abdominal: NL Sounds; No Tenderness; No Distention, No Hepatosplenomegaly Lymphatic: No Cervical Adenopathy Extremities: No Clubbing, Cyanosis Skin: No Rash or Ulcers Neurological: Alert and Oriented x 3 Result Diagrams: 04/14/16 13:00 04/14/16 13:00 Additional Lab and Data: Lab Results 04/14/16 04/14/16 04/14/16 Range/Units 13:00 13:00 13:00 WBC 6.0 (3.5-10.8) 10^3/ul RBC 4.98 (4.0-5.4) 10^6/ul Hgb 14.9 (14.0-18.0) g/dl Hct 44 (42-52) % MCV 88 (80-94) fL MCH 30 (27-31) pg MCHC 34 (31-36) g/dl RDW 13 (10.5-15) % Plt Count 189 (150-450) 10^3/ul MPV 10 (7.4-10.4) um3 Neut % (Auto) 68.9 (38-83) % Lymph % (Auto) 21.9 L (25-47) % [place] % (Auto) 7.5 (1-9) % Eos % (Auto) 1.2 (0-6) % Baso % (Auto) 0.5 (0-2) % Absolute Neuts (auto) 4.1 (1.5-7.7) 10^3/ul Absolute Lymphs (auto) 1.3 (1.0-4.8) 10^3/ul Absolute Monos (auto) 0.4 (0-0.8) 10^3/ul Absolute Eos (auto) 0.1 (0-0.6) 10^3/ul Absolute Basos (auto) 0 (0-0.2) 10^3/ul Absolute Nucleated RBC 0.01 10^3/ul Nucleated RBC % 0.2 INR (Anticoag Therapy) 0.97 (0.89-1.11) Sodium 138 (133-145) mmol/L Potassium 4.0 (3.5-5.0) mmol/L Chloride 106 (101-111) mmol/L Carbon Dioxide 27 (22-32) mmol/L Anion Gap 5 (2-11) mmol/L BUN 11 (6-24) mg/dL Creatinine 0.74 (0.67-1.17) mg/dL Est GFR ( Amer) 136.5 (>60) Est GFR (Non-Af Amer) 106.2 (>60) BUN/Creatinine Ratio 14.9 (8-20) Glucose 102 H (70-100) mg/dL Lactic Acid (0.5-2.0) mmol/L Calcium 9.5 (8.6-10.3) mg/dL Magnesium 2.2 (1.9-2.7) mg/dL Total Bilirubin 0.70 (0.2-1.0) mg/dL AST 17 (13-39) U/L ALT 16 (7-52) U/L Alkaline Phosphatase 56 (34-104) U/L Total Creatine Kinase 146 (10-223) U/L Troponin I 0.01 (<0.04) ng/mL B-Natriuretic Peptide ( - 100) pg/mL Total Protein 6.4 (6.4-8.9) g/dL Albumin 4.0 (3.2-5.2) g/dL Globulin 2.4 (2-4) g/dL Albumin/Globulin Ratio 1.7 (1-3) TSH 0.67 (0.34-5.60) mcIU/mL Urine Color Urine Appearance Urine pH (5-9) Ur Specific [place] (1.010-1.030) Urine Protein (Negative) Urine Ketones (Negative) Urine Blood (Negative) Urine Nitrate (Negative) Urine Bilirubin (Negative) Urine Urobilinogen (Negative) Ur Leukocyte Esterase (Negative) Urine Glucose (Negative) Urine Ascorbic Acid (Negative) Salicylates < 2.50 (<30) mg/dL Urine Opiates Screen (None Detect) Acetaminophen < 15 mcg/mL Ur Barbiturates Screen (None Detect) Ur Phencyclidine Scrn (None Detect) Ur Amphetamines Screen (None Detect) U Benzodiazepines Scrn (None Detect) Urine Cocaine Screen (None Detect) U Cannabinoids Screen (None Detect) Serum Alcohol < 10 (<10) mg/dL 04/14/16 04/14/16 04/14/16 Range/Units 13:00 13:00 15:43 WBC (3.5-10.8) 10^3/ul RBC (4.0-5.4) 10^6/ul Hgb (14.0-18.0) g/dl Hct (42-52) % MCV (80-94) fL MCH (27-31) pg MCHC (31-36) g/dl RDW (10.5-15) % Plt Count (150-450) 10^3/ul MPV (7.4-10.4) um3 Neut % (Auto) (38-83) % Lymph % (Auto) (25-47) % [place] % (Auto) (1-9) % Eos % (Auto) (0-6) % Baso % (Auto) (0-2) % Absolute Neuts (auto) (1.5-7.7) 10^3/ul Absolute Lymphs (auto) (1.0-4.8) 10^3/ul Absolute Monos (auto) (0-0.8) 10^3/ul Absolute Eos (auto) (0-0.6) 10^3/ul Absolute Basos (auto) (0-0.2) 10^3/ul Absolute Nucleated RBC 10^3/ul Nucleated RBC % INR (Anticoag Therapy) (0.89-1.11) Sodium (133-145) mmol/L Potassium (3.5-5.0) mmol/L Chloride (101-111) mmol/L Carbon Dioxide (22-32) mmol/L Anion Gap (2-11) mmol/L BUN (6-24) mg/dL Creatinine (0.67-1.17) mg/dL Est GFR ( Amer) (>60) Est GFR (Non-Af Amer) (>60) BUN/Creatinine Ratio (8-20) Glucose (70-100) mg/dL Lactic Acid 0.9 (0.5-2.0) mmol/L Calcium (8.6-10.3) mg/dL Magnesium (1.9-2.7) mg/dL Total Bilirubin (0.2-1.0) mg/dL AST (13-39) U/L ALT (7-52) U/L Alkaline Phosphatase (34-104) U/L Total Creatine Kinase (10-223) U/L Troponin I (<0.04) ng/mL B-Natriuretic Peptide 18 ( - 100) pg/mL Total Protein (6.4-8.9) g/dL Albumin (3.2-5.2) g/dL Globulin (2-4) g/dL Albumin/Globulin Ratio (1-3) TSH (0.34-5.60) mcIU/mL Urine Color Yellow Urine Appearance Cloudy Urine pH 6.0 (5-9) Ur Specific [place] 1.019 (1.010-1.030) Urine Protein Negative (Negative) Urine Ketones Negative (Negative) Urine Blood Negative (Negative) Urine Nitrate Negative (Negative) Urine Bilirubin Negative (Negative) Urine Urobilinogen Negative (Negative) Ur Leukocyte Esterase Negative (Negative) Urine Glucose Negative (Negative) Urine Ascorbic Acid * H (Negative) Salicylates (<30) mg/dL Urine Opiates Screen (None Detect) Acetaminophen mcg/mL Ur Barbiturates Screen (None Detect) Ur Phencyclidine Scrn (None Detect) Ur Amphetamines Screen (None Detect) U Benzodiazepines Scrn (None Detect) Urine Cocaine Screen (None Detect) U Cannabinoids Screen (None Detect) Serum Alcohol (<10) mg/dL 04/14/16 Range/Units 15:43 WBC (3.5-10.8) 10^3/ul RBC (4.0-5.4) 10^6/ul Hgb (14.0-18.0) g/dl Hct (42-52) % MCV (80-94) fL MCH (27-31) pg MCHC (31-36) g/dl RDW (10.5-15) % Plt Count (150-450) 10^3/ul MPV (7.4-10.4) um3 Neut % (Auto) (38-83) % Lymph % (Auto) (25-47) % [place] % (Auto) (1-9) % Eos % (Auto) (0-6) % Baso % (Auto) (0-2) % Absolute Neuts (auto) (1.5-7.7) 10^3/ul Absolute Lymphs (auto) (1.0-4.8) 10^3/ul Absolute Monos (auto) (0-0.8) 10^3/ul Absolute Eos (auto) (0-0.6) 10^3/ul Absolute Basos (auto) (0-0.2) 10^3/ul Absolute Nucleated RBC 10^3/ul Nucleated RBC % INR (Anticoag Therapy) (0.89-1.11) Sodium (133-145) mmol/L Potassium (3.5-5.0) mmol/L Chloride (101-111) mmol/L Carbon Dioxide (22-32) mmol/L Anion Gap (2-11) mmol/L BUN (6-24) mg/dL Creatinine (0.67-1.17) mg/dL Est GFR ( Amer) (>60) Est GFR (Non-Af Amer) (>60) BUN/Creatinine Ratio (8-20) Glucose (70-100) mg/dL Lactic Acid (0.5-2.0) mmol/L Calcium (8.6-10.3) mg/dL Magnesium (1.9-2.7) mg/dL Total Bilirubin (0.2-1.0) mg/dL AST (13-39) U/L ALT (7-52) U/L Alkaline Phosphatase (34-104) U/L Total Creatine Kinase (10-223) U/L Troponin I (<0.04) ng/mL B-Natriuretic Peptide ( - 100) pg/mL Total Protein (6.4-8.9) g/dL Albumin (3.2-5.2) g/dL Globulin (2-4) g/dL Albumin/Globulin Ratio (1-3) TSH (0.34-5.60) mcIU/mL Urine Color Urine Appearance Urine pH (5-9) Ur Specific [place] (1.010-1.030) Urine Protein (Negative) Urine Ketones (Negative) Urine Blood (Negative) Urine Nitrate (Negative) Urine Bilirubin (Negative) Urine Urobilinogen (Negative) Ur Leukocyte Esterase (Negative) Urine Glucose (Negative) Urine Ascorbic Acid (Negative) Salicylates (<30) mg/dL Urine Opiates Screen None detected (None Detect) Acetaminophen mcg/mL Ur Barbiturates Screen None detected (None Detect) Ur Phencyclidine Scrn None detected (None Detect) Ur Amphetamines Screen None detected (None Detect) U Benzodiazepines Scrn None detected (None Detect) Urine Cocaine Screen None detected (None Detect) U Cannabinoids Screen None detected (None Detect) Serum Alcohol (<10) mg/dL Assess/Plan/Problems-Billing Assessment: - Patient Problems (1) Gait abnormality Current Visit: Yes Status: Acute Code(s): R26.9 - UNSPECIFIED ABNORMALITIES OF GAIT AND MOBILITY SNOMED Code(s): 31054729 Comment: PT charo. Appreciate neurology's input. 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 Waiting Psychiatry's input for capacity to refuse SNF-rehab placement. (2) CAD (coronary artery disease) Current Visit: Yes Status: Acute Code(s): I25.10 - ATHSCL HEART DISEASE OF [place] CORONARY ARTERY W/O ANG PCTRS SNOMED Code(s): 17332217 Comment: Stable. No active issues.Continue ASA, BB and statin. (3) Retinitis pigmentosa Current Visit: Yes Status: Acute Code(s): H35.52 - PIGMENTARY RETINAL DYSTROPHY SNOMED Code(s): 50124211 Comment: Patient can discern faces, but apparently has trouble counting fingers. (4) Speaking difficulty Current Visit: Yes Status: Acute Comment: Speech is slow . Speech therapy consult appreciated. Minimal dysarthria. (5) Full code status Current Visit: Yes Status: Acute Code(s): Z78.9 - OTHER SPECIFIED HEALTH STATUS SNOMED Code(s): 864089831
[2016-04-16] MEDS: Atorvastatin* 10 MG TAB PO SCH (17:52)
[2016-04-16] MEDS: Enoxaparin(*) 40 MG/0.4 ML SYR SUBCUT SCH (17:52)
[2016-04-17] MEDS ORDERED: Bismuth Subsalicylate* 524 MG/30 ML BTL PO PRN (05:42)
[2016-04-17] MEDS: Aspirin EC Low Dose* 81 MG TAB.EC PO SCH (08:43)
[2016-04-17] MEDS: Metoprolol Succinate XL TAB* 25 MG PO SCH (08:43)
--- NOTE | 2016-04-17 16:38 | PN ---
Subjective Date of Service: 04/17/16 Interval History: Patient without specific complaints. Wants to go home. Family History: Findings - unremarkable. Social History: Findings - Never smoked. Binge drinker until 06/2015. Lives alone. SDM is his daughter Patrica at [phone] Past Medical History: Findings - Cardiac stent 2000, cataract x 2, retinitis pigmentosa, cholecystectomy. Skin cancer followed by Dr. Grewal. Objective Active Medications: Aspirin (Aspirin Ec Low Dose*) 81 mg PO DAILY [facility] Last Admin: 04/17/16 08:43 Dose: 81 mg Atorvastatin Calcium (Lipitor*) 10 mg PO 1700 [facility] Last Admin: 04/16/16 17:52 Dose: 10 mg Bismuth Subsalicylate (Peptic Relief*) 524 mg PO Q2H PRN PRN Reason: INDIGESTION Enoxaparin Sodium (Lovenox(*)) 40 mg SUBCUT Q24H [facility] Last Admin: 04/16/16 17:52 Dose: 40 mg Metoprolol Succinate (Toprol Xl Tab*) 25 mg PO DAILY [facility] Last Admin: 04/17/16 08:43 Dose: 25 mg Vital Signs 04/16/16 04/16/16 04/17/16 15:37 20:00 00:03 Temperature 97.9 F 98.1 F Pulse Rate 85 72 Respiratory 20 16 16 Rate Blood Pressure 140/81 133/73 (mmHg) O2 Sat by Pulse 98 96 Oximetry 04/17/16 04/17/16 07:32 09:38 Temperature 98.0 F Pulse Rate 76 Respiratory 18 18 Rate Blood Pressure 138/77 (mmHg) O2 Sat by Pulse 97 Oximetry Oxygen Devices in Use Now: None Appearance: WD/WN gentleman sitting up in his chair in NAD Eyes: No Scleral Icterus Ears/Nose/Mouth/Throat: Mucous Membranes Moist Neck: No Thyroid Enlargement, Masses Respiratory: Clear to Auscultation Cardiovascular: - - S1S2 angelica Abdominal: NL Sounds; No Tenderness; No Distention, No Hepatosplenomegaly Lymphatic: No Cervical Adenopathy Extremities: No Clubbing, Cyanosis Skin: No Rash or Ulcers Neurological: Alert and Oriented x 3, - - Masked facies, shuffling gait Result Diagrams: 04/14/16 13:00 04/14/16 13:00 Additional Lab and Data: Lab Results 04/14/16 04/14/16 04/14/16 Range/Units 13:00 13:00 13:00 WBC 6.0 (3.5-10.8) 10^3/ul RBC 4.98 (4.0-5.4) 10^6/ul Hgb 14.9 (14.0-18.0) g/dl Hct 44 (42-52) % MCV 88 (80-94) fL MCH 30 (27-31) pg MCHC 34 (31-36) g/dl RDW 13 (10.5-15) % Plt Count 189 (150-450) 10^3/ul MPV 10 (7.4-10.4) um3 Neut % (Auto) 68.9 (38-83) % Lymph % (Auto) 21.9 L (25-47) % [place] % (Auto) 7.5 (1-9) % Eos % (Auto) 1.2 (0-6) % Baso % (Auto) 0.5 (0-2) % Absolute Neuts (auto) 4.1 (1.5-7.7) 10^3/ul Absolute Lymphs (auto) 1.3 (1.0-4.8) 10^3/ul Absolute Monos (auto) 0.4 (0-0.8) 10^3/ul Absolute Eos (auto) 0.1 (0-0.6) 10^3/ul Absolute Basos (auto) 0 (0-0.2) 10^3/ul Absolute Nucleated RBC 0.01 10^3/ul Nucleated RBC % 0.2 INR (Anticoag Therapy) 0.97 (0.89-1.11) Sodium 138 (133-145) mmol/L Potassium 4.0 (3.5-5.0) mmol/L Chloride 106 (101-111) mmol/L Carbon Dioxide 27 (22-32) mmol/L Anion Gap 5 (2-11) mmol/L BUN 11 (6-24) mg/dL Creatinine 0.74 (0.67-1.17) mg/dL Est GFR ( Amer) 136.5 (>60) Est GFR (Non-Af Amer) 106.2 (>60) BUN/Creatinine Ratio 14.9 (8-20) Glucose 102 H (70-100) mg/dL Lactic Acid (0.5-2.0) mmol/L Calcium 9.5 (8.6-10.3) mg/dL Magnesium 2.2 (1.9-2.7) mg/dL Total Bilirubin 0.70 (0.2-1.0) mg/dL AST 17 (13-39) U/L ALT 16 (7-52) U/L Alkaline Phosphatase 56 (34-104) U/L Total Creatine Kinase 146 (10-223) U/L Troponin I 0.01 (<0.04) ng/mL B-Natriuretic Peptide ( - 100) pg/mL Total Protein 6.4 (6.4-8.9) g/dL Albumin 4.0 (3.2-5.2) g/dL Globulin 2.4 (2-4) g/dL Albumin/Globulin Ratio 1.7 (1-3) TSH 0.67 (0.34-5.60) mcIU/mL Urine Color Urine Appearance Urine pH (5-9) Ur Specific [place] (1.010-1.030) Urine Protein (Negative) Urine Ketones (Negative) Urine Blood (Negative) Urine Nitrate (Negative) Urine Bilirubin (Negative) Urine Urobilinogen (Negative) Ur Leukocyte Esterase (Negative) Urine Glucose (Negative) Urine Ascorbic Acid (Negative) Salicylates < 2.50 (<30) mg/dL Urine Opiates Screen (None Detect) Acetaminophen < 15 mcg/mL Ur Barbiturates Screen (None Detect) Ur Phencyclidine Scrn (None Detect) Ur Amphetamines Screen (None Detect) U Benzodiazepines Scrn (None Detect) Urine Cocaine Screen (None Detect) U Cannabinoids Screen (None Detect) Serum Alcohol < 10 (<10) mg/dL 04/14/16 04/14/16 04/14/16 Range/Units 13:00 13:00 15:43 WBC (3.5-10.8) 10^3/ul RBC (4.0-5.4) 10^6/ul Hgb (14.0-18.0) g/dl Hct (42-52) % MCV (80-94) fL MCH (27-31) pg MCHC (31-36) g/dl RDW (10.5-15) % Plt Count (150-450) 10^3/ul MPV (7.4-10.4) um3 Neut % (Auto) (38-83) % Lymph % (Auto) (25-47) % [place] % (Auto) (1-9) % Eos % (Auto) (0-6) % Baso % (Auto) (0-2) % Absolute Neuts (auto) (1.5-7.7) 10^3/ul Absolute Lymphs (auto) (1.0-4.8) 10^3/ul Absolute Monos (auto) (0-0.8) 10^3/ul Absolute Eos (auto) (0-0.6) 10^3/ul Absolute Basos (auto) (0-0.2) 10^3/ul Absolute Nucleated RBC 10^3/ul Nucleated RBC % INR (Anticoag Therapy) (0.89-1.11) Sodium (133-145) mmol/L Potassium (3.5-5.0) mmol/L Chloride (101-111) mmol/L Carbon Dioxide (22-32) mmol/L Anion Gap (2-11) mmol/L BUN (6-24) mg/dL Creatinine (0.67-1.17) mg/dL Est GFR ( Amer) (>60) Est GFR (Non-Af Amer) (>60) BUN/Creatinine Ratio (8-20) Glucose (70-100) mg/dL Lactic Acid 0.9 (0.5-2.0) mmol/L Calcium (8.6-10.3) mg/dL Magnesium (1.9-2.7) mg/dL Total Bilirubin (0.2-1.0) mg/dL AST (13-39) U/L ALT (7-52) U/L Alkaline Phosphatase (34-104) U/L Total Creatine Kinase (10-223) U/L Troponin I (<0.04) ng/mL B-Natriuretic Peptide 18 ( - 100) pg/mL Total Protein (6.4-8.9) g/dL Albumin (3.2-5.2) g/dL Globulin (2-4) g/dL Albumin/Globulin Ratio (1-3) TSH (0.34-5.60) mcIU/mL Urine Color Yellow Urine Appearance Cloudy Urine pH 6.0 (5-9) Ur Specific [place] 1.019 (1.010-1.030) Urine Protein Negative (Negative) Urine Ketones Negative (Negative) Urine Blood Negative (Negative) Urine Nitrate Negative (Negative) Urine Bilirubin Negative (Negative) Urine Urobilinogen Negative (Negative) Ur Leukocyte Esterase Negative (Negative) Urine Glucose Negative (Negative) Urine Ascorbic Acid * H (Negative) Salicylates (<30) mg/dL Urine Opiates Screen (None Detect) Acetaminophen mcg/mL Ur Barbiturates Screen (None Detect) Ur Phencyclidine Scrn (None Detect) Ur Amphetamines Screen (None Detect) U Benzodiazepines Scrn (None Detect) Urine Cocaine Screen (None Detect) U Cannabinoids Screen (None Detect) Serum Alcohol (<10) mg/dL 04/14/16 Range/Units 15:43 WBC (3.5-10.8) 10^3/ul RBC (4.0-5.4) 10^6/ul Hgb (14.0-18.0) g/dl Hct (42-52) % MCV (80-94) fL MCH (27-31) pg MCHC (31-36) g/dl RDW (10.5-15) % Plt Count (150-450) 10^3/ul MPV (7.4-10.4) um3 Neut % (Auto) (38-83) % Lymph % (Auto) (25-47) % [place] % (Auto) (1-9) % Eos % (Auto) (0-6) % Baso % (Auto) (0-2) % Absolute Neuts (auto) (1.5-7.7) 10^3/ul Absolute Lymphs (auto) (1.0-4.8) 10^3/ul Absolute Monos (auto) (0-0.8) 10^3/ul Absolute Eos (auto) (0-0.6) 10^3/ul Absolute Basos (auto) (0-0.2) 10^3/ul Absolute Nucleated RBC 10^3/ul Nucleated RBC % INR (Anticoag Therapy) (0.89-1.11) Sodium (133-145) mmol/L Potassium (3.5-5.0) mmol/L Chloride (101-111) mmol/L Carbon Dioxide (22-32) mmol/L Anion Gap (2-11) mmol/L BUN (6-24) mg/dL Creatinine (0.67-1.17) mg/dL Est GFR ( Amer) (>60) Est GFR (Non-Af Amer) (>60) BUN/Creatinine Ratio (8-20) Glucose (70-100) mg/dL Lactic Acid (0.5-2.0) mmol/L Calcium (8.6-10.3) mg/dL Magnesium (1.9-2.7) mg/dL Total Bilirubin (0.2-1.0) mg/dL AST (13-39) U/L ALT (7-52) U/L Alkaline Phosphatase (34-104) U/L Total Creatine Kinase (10-223) U/L Troponin I (<0.04) ng/mL B-Natriuretic Peptide ( - 100) pg/mL Total Protein (6.4-8.9) g/dL Albumin (3.2-5.2) g/dL Globulin (2-4) g/dL Albumin/Globulin Ratio (1-3) TSH (0.34-5.60) mcIU/mL Urine Color Urine Appearance Urine pH (5-9) Ur Specific [place] (1.010-1.030) Urine Protein (Negative) Urine Ketones (Negative) Urine Blood (Negative) Urine Nitrate (Negative) Urine Bilirubin (Negative) Urine Urobilinogen (Negative) Ur Leukocyte Esterase (Negative) Urine Glucose (Negative) Urine Ascorbic Acid (Negative) Salicylates (<30) mg/dL Urine Opiates Screen None detected (None Detect) Acetaminophen mcg/mL Ur Barbiturates Screen None detected (None Detect) Ur Phencyclidine Scrn None detected (None Detect) Ur Amphetamines Screen None detected (None Detect) U Benzodiazepines Scrn None detected (None Detect) Urine Cocaine Screen None detected (None Detect) U Cannabinoids Screen None detected (None Detect) Serum Alcohol (<10) mg/dL Assess/Plan/Problems-Billing Assessment: - Patient Problems (1) Gait abnormality Current Visit: Yes Status: Acute Code(s): R26.9 - UNSPECIFIED ABNORMALITIES OF GAIT AND MOBILITY SNOMED Code(s): 79363716 Comment: Appreciate neurology's input. They feel the patient likely has a pro gressive neurodegenerative disorder that can only be treated symptomatically. Called Psychiatry because still waiting Psychiatry's input for capacity to refuse SNF-rehab placement. Patient cannot be discharged in my opinion to home as he is in an unsafe situation in which he cannot clean or cook or care for himself. (2) Altered mental status Current Visit: Yes Status: Acute Code(s): R41.82 - ALTERED MENTAL STATUS, UNSPECIFIED SNOMED Code(s): 737270483 Comment: Patient hallucinates frequently and does not know where he is and has imaginary conversations with people who are not there. This is happening with concerning frequency. (3) CAD (coronary artery disease) Current Visit: Yes Status: Acute Code(s): I25.10 - ATHSCL HEART DISEASE OF [place] CORONARY ARTERY W/O ANG PCTRS SNOMED Code(s): 28980772 Comment: Stable. No active issues.Continue ASA, BB and statin. (4) Retinitis pigmentosa Current Visit: Yes Status: Acute Code(s): H35.52 - PIGMENTARY RETINAL DYSTROPHY SNOMED Code(s): 30975178 Comment: Patient can discern faces, but apparently has trouble counting fingers. (5) Speaking difficulty Current Visit: Yes Status: Acute Comment: Speech is slow . Speech therapy consult appreciated. Minimal dysarthria. (6) Full code status Current Visit: Yes Status: Acute Code(s): Z78.9 - OTHER SPECIFIED HEALTH STATUS SNOMED Code(s): 178159929
[2016-04-17] MEDS: Cetirizine* 10 MG TAB PO SCH (17:05)
[2016-04-17] MEDS: Atorvastatin* 10 MG TAB PO SCH (17:05)
[2016-04-17] MEDS: Enoxaparin(*) 40 MG/0.4 ML SYR SUBCUT SCH (17:06)
[2016-04-17] MEDS ORDERED: REFRESH LIQUIGEL BOTH EYES PRN (17:18)
--- NOTE | 2016-04-17 18:23 | PN ---
Progress Note - Progress Note Note: Records reviewed, patient evaluated and collaterals obtained from patient's daughter(Patrica and friend Janna). Over all at this time Mr. Abrams lacks capacity to decide what type of place is safe and appropriate for him. Please see my dictated consult note for details.
--- NOTE | 2016-04-17 22:29 | CONS ---
CONSULTATION NOTE: DATE OF CONSULT: DATE OF DICTATION: 04/17/16 REASON FOR CONSULT: To determine his capacity to make a decision for placement at a specialized rehab nursing facility. IDENTIFYING DATA: Mr. Abrams is a 65-year-old /single male currently admitted on , room #417, because of inability to take care of himself as well as recent fall. HISTORY OF PRESENT ILLNESS: The patient was evaluated in his room at his bedside in the presence of his daughter Patrica and friend Janna, and most of the informations were obtained from the patient with the help of the family members. Briefly, the patient had increasing difficulty managing his ADL/IDL and has been posing a risk for fall and other harm to himself, including malnutrition because of his inability to cook or prepare his meals. According to his daughter and friend, he has been experiencing difficulty even making a peanut butter sandwich for himself and was mostly reliant on Meals on Wheels once a day. He may have lost some weight as well. There is a suspicion that he may be suffering from Parkinson's disease or even maybe some form of dementia such as Lewy body dementia and the diagnostic process is ongoing. His neurologist, Dr. Blanc, is actively looking for a resolution to his condition. During my conversation with Mr. Abrams, he was very pleasant and forthcoming. He acknowledges that he has been having difficulty taking care of himself and wishes he could go back to his apartment or his house instead of going anywhere else. However, if advised by his care providers, he will go anywhere as this is not his choice anymore. Overall, he understands that this is not safe for him to go home. He insisted he might be able to go home if someone could provide daily assistance such as home care health. He also is worried about expenses that might incur because of going to any rehab or assisted nursing facility. He is at best ambivalent about making a determination whether to go to his own place or in a place where he will get some rehabilitation as well as assistance. Hence, in my opinion he lacks the capacity to make a determination of his future placement as he does not understand the risks involved in going to his own place without having a 24x7 help. Hope this helps Mr. Abrams's current treatment team to make a determination with the help of his loved ones. In case it is insufficient, please contact behavioral health unit for further assistance. [id number]/CPS #: [id number] GEETA
[2016-04-18] MEDS: Aspirin EC Low Dose* 81 MG TAB.EC PO SCH (08:29)
[2016-04-18] MEDS: Cetirizine* 10 MG TAB PO SCH (08:29)
[2016-04-18] MEDS: Metoprolol Succinate XL TAB* 25 MG PO SCH (08:29)
[2016-04-18] MEDS ORDERED: Loperamide CAP* 2 MG PO ONE (10:34)
--- NOTE | 2016-04-18 10:58 | PN ---
Subjective Date of Service: 04/18/16 Interval History: Seen and examined with daughter/HCP and girlfriend at bedside Pt with several episodes of diarrhea overnight for which he was given immodium x 1 this AM. No other complaints although indicates he would like to go home. Family History: Findings - unremarkable. Social History: Findings - Never smoked. Binge drinker until 06/2015. Lives alone. SDM is his daughter Patrica at [phone] Past Medical History: Findings - Cardiac stent 2000, cataract x 2, retinitis pigmentosa, cholecystectomy. Skin cancer followed by Dr. Grewal. Objective Active Medications: Aspirin (Aspirin Ec Low Dose*) 81 mg PO DAILY [facility] Last Admin: 04/18/16 08:29 Dose: 81 mg Atorvastatin Calcium (Lipitor*) 10 mg PO 1700 [facility] Last Admin: 04/17/16 17:05 Dose: 10 mg Bismuth Subsalicylate (Peptic Relief*) 524 mg PO Q2H PRN PRN Reason: INDIGESTION Cetirizine HCl (Zyrtec*) 10 mg PO DAILY [facility] Last Admin: 04/18/16 08:29 Dose: 10 mg Enoxaparin Sodium (Lovenox(*)) 40 mg SUBCUT Q24H [facility] Last Admin: 04/17/16 17:06 Dose: 40 mg Metoprolol Succinate (Toprol Xl Tab*) 25 mg PO DAILY [facility] Last Admin: 04/18/16 08:29 Dose: 25 mg Polyvinyl Alcohol (Polyvinyl Alcohol 1.4% Opth*) 1 drop BOTH EYES Q2H PRN PRN Reason: DRY EYE Vital Signs 04/17/16 04/17/16 04/17/16 15:39 20:00 23:26 Temperature 97.3 F 98.0 F Pulse Rate 66 76 Respiratory 18 16 Rate Blood Pressure 124/81 117/61 (mmHg) O2 Sat by Pulse 98 95 Oximetry 04/18/16 10:45 Temperature Pulse Rate Respiratory 18 Rate Blood Pressure (mmHg) O2 Sat by Pulse Oximetry Oxygen Devices in Use Now: None Appearance: NAD, interactive Eyes: No Scleral Icterus, PERRLA Ears/Nose/Mouth/Throat: Clear Oropharnyx, Mucous Membranes Moist Neck: NL Appearance and Movements; NL JVP, Trachea Midline Respiratory: Symmetrical Chest Expansion and Respiratory Effort, Clear to Auscultation Cardiovascular: RRR Abdominal: NL Sounds; No Tenderness; No Distention Lymphatic: No Cervical Adenopathy Extremities: No Edema Skin: No Rash or Ulcers Neurological: Alert and Oriented x 3, - - pyschomotor slowing, shuffling gait while ambulating back from bathroom. oriented Result Diagrams: 04/14/16 13:00 04/14/16 13:00 Additional Lab and Data: Lab Results 04/14/16 04/14/16 04/14/16 Range/Units 13:00 13:00 13:00 WBC 6.0 (3.5-10.8) 10^3/ul RBC 4.98 (4.0-5.4) 10^6/ul Hgb 14.9 (14.0-18.0) g/dl Hct 44 (42-52) % MCV 88 (80-94) fL MCH 30 (27-31) pg MCHC 34 (31-36) g/dl RDW 13 (10.5-15) % Plt Count 189 (150-450) 10^3/ul MPV 10 (7.4-10.4) um3 Neut % (Auto) 68.9 (38-83) % Lymph % (Auto) 21.9 L (25-47) % [place] % (Auto) 7.5 (1-9) % Eos % (Auto) 1.2 (0-6) % Baso % (Auto) 0.5 (0-2) % Absolute Neuts (auto) 4.1 (1.5-7.7) 10^3/ul Absolute Lymphs (auto) 1.3 (1.0-4.8) 10^3/ul Absolute Monos (auto) 0.4 (0-0.8) 10^3/ul Absolute Eos (auto) 0.1 (0-0.6) 10^3/ul Absolute Basos (auto) 0 (0-0.2) 10^3/ul Absolute Nucleated RBC 0.01 10^3/ul Nucleated RBC % 0.2 INR (Anticoag Therapy) 0.97 (0.89-1.11) Sodium 138 (133-145) mmol/L Potassium 4.0 (3.5-5.0) mmol/L Chloride 106 (101-111) mmol/L Carbon Dioxide 27 (22-32) mmol/L Anion Gap 5 (2-11) mmol/L BUN 11 (6-24) mg/dL Creatinine 0.74 (0.67-1.17) mg/dL Est GFR ( Amer) 136.5 (>60) Est GFR (Non-Af Amer) 106.2 (>60) BUN/Creatinine Ratio 14.9 (8-20) Glucose 102 H (70-100) mg/dL Lactic Acid (0.5-2.0) mmol/L Calcium 9.5 (8.6-10.3) mg/dL Magnesium 2.2 (1.9-2.7) mg/dL Total Bilirubin 0.70 (0.2-1.0) mg/dL AST 17 (13-39) U/L ALT 16 (7-52) U/L Alkaline Phosphatase 56 (34-104) U/L Total Creatine Kinase 146 (10-223) U/L Troponin I 0.01 (<0.04) ng/mL B-Natriuretic Peptide ( - 100) pg/mL Total Protein 6.4 (6.4-8.9) g/dL Albumin 4.0 (3.2-5.2) g/dL Globulin 2.4 (2-4) g/dL Albumin/Globulin Ratio 1.7 (1-3) TSH 0.67 (0.34-5.60) mcIU/mL Urine Color Urine Appearance Urine pH (5-9) Ur Specific [place] (1.010-1.030) Urine Protein (Negative) Urine Ketones (Negative) Urine Blood (Negative) Urine Nitrate (Negative) Urine Bilirubin (Negative) Urine Urobilinogen (Negative) Ur Leukocyte Esterase (Negative) Urine Glucose (Negative) Urine Ascorbic Acid (Negative) Salicylates < 2.50 (<30) mg/dL Urine Opiates Screen (None Detect) Acetaminophen < 15 mcg/mL Ur Barbiturates Screen (None Detect) Ur Phencyclidine Scrn (None Detect) Ur Amphetamines Screen (None Detect) U Benzodiazepines Scrn (None Detect) Urine Cocaine Screen (None Detect) U Cannabinoids Screen (None Detect) Serum Alcohol < 10 (<10) mg/dL 04/14/16 04/14/16 04/14/16 Range/Units 13:00 13:00 15:43 WBC (3.5-10.8) 10^3/ul RBC (4.0-5.4) 10^6/ul Hgb (14.0-18.0) g/dl Hct (42-52) % MCV (80-94) fL MCH (27-31) pg MCHC (31-36) g/dl RDW (10.5-15) % Plt Count (150-450) 10^3/ul MPV (7.4-10.4) um3 Neut % (Auto) (38-83) % Lymph % (Auto) (25-47) % [place] % (Auto) (1-9) % Eos % (Auto) (0-6) % Baso % (Auto) (0-2) % Absolute Neuts (auto) (1.5-7.7) 10^3/ul Absolute Lymphs (auto) (1.0-4.8) 10^3/ul Absolute Monos (auto) (0-0.8) 10^3/ul Absolute Eos (auto) (0-0.6) 10^3/ul Absolute Basos (auto) (0-0.2) 10^3/ul Absolute Nucleated RBC 10^3/ul Nucleated RBC % INR (Anticoag Therapy) (0.89-1.11) Sodium (133-145) mmol/L Potassium (3.5-5.0) mmol/L Chloride (101-111) mmol/L Carbon Dioxide (22-32) mmol/L Anion Gap (2-11) mmol/L BUN (6-24) mg/dL Creatinine (0.67-1.17) mg/dL Est GFR ( Amer) (>60) Est GFR (Non-Af Amer) (>60) BUN/Creatinine Ratio (8-20) Glucose (70-100) mg/dL Lactic Acid 0.9 (0.5-2.0) mmol/L Calcium (8.6-10.3) mg/dL Magnesium (1.9-2.7) mg/dL Total Bilirubin (0.2-1.0) mg/dL AST (13-39) U/L ALT (7-52) U/L Alkaline Phosphatase (34-104) U/L Total Creatine Kinase (10-223) U/L Troponin I (<0.04) ng/mL B-Natriuretic Peptide 18 ( - 100) pg/mL Total Protein (6.4-8.9) g/dL Albumin (3.2-5.2) g/dL Globulin (2-4) g/dL Albumin/Globulin Ratio (1-3) TSH (0.34-5.60) mcIU/mL Urine Color Yellow Urine Appearance Cloudy Urine pH 6.0 (5-9) Ur Specific [place] 1.019 (1.010-1.030) Urine Protein Negative (Negative) Urine Ketones Negative (Negative) Urine Blood Negative (Negative) Urine Nitrate Negative (Negative) Urine Bilirubin Negative (Negative) Urine Urobilinogen Negative (Negative) Ur Leukocyte Esterase Negative (Negative) Urine Glucose Negative (Negative) Urine Ascorbic Acid * H (Negative) Salicylates (<30) mg/dL Urine Opiates Screen (None Detect) Acetaminophen mcg/mL Ur Barbiturates Screen (None Detect) Ur Phencyclidine Scrn (None Detect) Ur Amphetamines Screen (None Detect) U Benzodiazepines Scrn (None Detect) Urine Cocaine Screen (None Detect) U Cannabinoids Screen (None Detect) Serum Alcohol (<10) mg/dL 04/14/16 Range/Units 15:43 WBC (3.5-10.8) 10^3/ul RBC (4.0-5.4) 10^6/ul Hgb (14.0-18.0) g/dl Hct (42-52) % MCV (80-94) fL MCH (27-31) pg MCHC (31-36) g/dl RDW (10.5-15) % Plt Count (150-450) 10^3/ul MPV (7.4-10.4) um3 Neut % (Auto) (38-83) % Lymph % (Auto) (25-47) % [place] % (Auto) (1-9) % Eos % (Auto) (0-6) % Baso % (Auto) (0-2) % Absolute Neuts (auto) (1.5-7.7) 10^3/ul Absolute Lymphs (auto) (1.0-4.8) 10^3/ul Absolute Monos (auto) (0-0.8) 10^3/ul Absolute Eos (auto) (0-0.6) 10^3/ul Absolute Basos (auto) (0-0.2) 10^3/ul Absolute Nucleated RBC 10^3/ul Nucleated RBC % INR (Anticoag Therapy) (0.89-1.11) Sodium (133-145) mmol/L Potassium (3.5-5.0) mmol/L Chloride (101-111) mmol/L Carbon Dioxide (22-32) mmol/L Anion Gap (2-11) mmol/L BUN (6-24) mg/dL Creatinine (0.67-1.17) mg/dL Est GFR ( Amer) (>60) Est GFR (Non-Af Amer) (>60) BUN/Creatinine Ratio (8-20) Glucose (70-100) mg/dL Lactic Acid (0.5-2.0) mmol/L Calcium (8.6-10.3) mg/dL Magnesium (1.9-2.7) mg/dL Total Bilirubin (0.2-1.0) mg/dL AST (13-39) U/L ALT (7-52) U/L Alkaline Phosphatase (34-104) U/L Total Creatine Kinase (10-223) U/L Troponin I (<0.04) ng/mL B-Natriuretic Peptide ( - 100) pg/mL Total Protein (6.4-8.9) g/dL Albumin (3.2-5.2) g/dL Globulin (2-4) g/dL Albumin/Globulin Ratio (1-3) TSH (0.34-5.60) mcIU/mL Urine Color Urine Appearance Urine pH (5-9) Ur Specific [place] (1.010-1.030) Urine Protein (Negative) Urine Ketones (Negative) Urine Blood (Negative) Urine Nitrate (Negative) Urine Bilirubin (Negative) Urine Urobilinogen (Negative) Ur Leukocyte Esterase (Negative) Urine Glucose (Negative) Urine Ascorbic Acid (Negative) Salicylates (<30) mg/dL Urine Opiates Screen None detected (None Detect) Acetaminophen mcg/mL Ur Barbiturates Screen None detected (None Detect) Ur Phencyclidine Scrn None detected (None Detect) Ur Amphetamines Screen None detected (None Detect) U Benzodiazepines Scrn None detected (None Detect) Urine Cocaine Screen None detected (None Detect) U Cannabinoids Screen None detected (None Detect) Serum Alcohol (<10) mg/dL Assess/Plan/Problems-Billing Assessment: 65 yo M with 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 No active issues.Continue ASA, BB and statin. (4) Retinitis pigmentosa Current Visit: Yes Status: Acute Code(s): H35.52 - PIGMENTARY RETINAL DYSTROPHY SNOMED Code(s): 27450576 Comment: Patient can discern faces, but apparently has trouble counting fingers. (5) DVT prophylaxis Comment: lovenox
[2016-04-18] MEDS ORDERED: Acetaminophen TAB* 325 MG PO PRN (15:30)
[2016-04-18] MEDS: Atorvastatin* 10 MG TAB PO SCH (15:43)
[2016-04-18] MEDS: Enoxaparin(*) 40 MG/0.4 ML SYR SUBCUT SCH ×2 (15:52→16:11)
[2016-04-19] MEDS: Aspirin EC Low Dose* 81 MG TAB.EC PO SCH (08:31)
[2016-04-19] MEDS: Metoprolol Succinate XL TAB* 25 MG PO SCH (08:31)
[2016-04-19] MEDS: Cetirizine* 10 MG TAB PO SCH (08:31)
[2016-04-19 12:19] LABS: Hematocrit 44 % (42-52); Hemoglobin 15.1 g/dl (14.0-18.0); Mean Corpuscular HGB Conc 35 g/dl (31-36); Mean Corpuscular Hemoglobin 30 pg (27-31); Mean Corpuscular Volume 87 fL (80-94); Mean Platelet Volume 10 um3 (7.4-10.4); Red Blood Count 5.01 10^6/ul (4.0-5.4); Red Cell Distribution Width 13 % (10.5-15)
[2016-04-19 12:36] LABS: Albumin 3.4 g/dL (3.2-5.2); BUN/Creatinine Ratio 19.2 (8-20); C Reactive Protein 55.11 mg/L (< 5.00); Calcium 8.5 mg/dL (8.6-10.3); EGFR African American 138.7 (>60); EGFR Non-African American 107.8 (>60); Globulin 2.4 g/dL (2-4); Potassium 3.8 mmol/L (3.5-5.0); Total Bilirubin 0.7 mg/dL (0.2-1.0); Total Protein 5.8 g/dL (6.4-8.9)
[2016-04-19 14:02] LABS: Urine Bilirubin Negative (Negative); Urine Glucose Negative (Negative); Urine Nitrite Negative (Negative)
--- NOTE | 2016-04-19 15:03 | PN ---
Subjective Date of Service: 04/19/16 Interval History: pt had a fever at night. Now offers no complaints. diarrhea resolved, no abd pain Family History: Findings - unremarkable. Social History: Findings - Never smoked. Binge drinker until 06/2015. Lives alone. SDM is his daughter Patrica at [phone] Past Medical History: Findings - Cardiac stent 2000, cataract x 2, retinitis pigmentosa, cholecystectomy. Skin cancer followed by Dr. Grewal. Objective Active Medications: Acetaminophen (Tylenol Tab*) 650 mg PO Q6H PRN PRN Reason: PAIN Last Admin: 04/18/16 15:43 Dose: 650 mg Aspirin (Aspirin Ec Low Dose*) 81 mg PO DAILY [facility] Last Admin: 04/19/16 08:31 Dose: 81 mg Atorvastatin Calcium (Lipitor*) 10 mg PO 1700 [facility] Last Admin: 04/18/16 15:43 Dose: 10 mg Bismuth Subsalicylate (Peptic Relief*) 524 mg PO Q2H PRN PRN Reason: INDIGESTION Cetirizine HCl (Zyrtec*) 10 mg PO DAILY [facility] Last Admin: 04/19/16 08:31 Dose: 10 mg Enoxaparin Sodium (Lovenox(*)) 40 mg SUBCUT Q24H [facility] Last Admin: 04/18/16 16:11 Dose: Not Given Metoprolol Succinate (Toprol Xl Tab*) 25 mg PO DAILY [facility] Last Admin: 04/19/16 08:31 Dose: 25 mg Polyvinyl Alcohol (Polyvinyl Alcohol 1.4% Opth*) 1 drop BOTH EYES Q2H PRN PRN Reason: DRY EYE Vital Signs 04/18/16 04/18/16 04/18/16 15:22 22:31 23:44 Temperature 100.4 F 100.7 F 100.6 F Pulse Rate 53 100 Respiratory 24 16 Rate Blood Pressure 109/54 116/70 (mmHg) O2 Sat by Pulse 96 94 Oximetry 04/19/16 04/19/16 04/19/16 00:21 02:03 03:12 Temperature 101.7 F Pulse Rate Respiratory 18 18 Rate Blood Pressure (mmHg) O2 Sat by Pulse Oximetry 04/19/16 04/19/16 07:27 08:00 Temperature 97.9 F Pulse Rate 73 Respiratory 16 18 Rate Blood Pressure 116/55 (mmHg) O2 Sat by Pulse 99 Oximetry Oxygen Devices in Use Now: None Appearance: 65 yo M, blind, in nAD, AAOx3, poor historian Eyes: No Scleral Icterus, PERRLA Ears/Nose/Mouth/Throat: NL Teeth, Lips, Gums, Mucous Membranes Moist Neck: NL Appearance and Movements; NL JVP, Trachea Midline Respiratory: Symmetrical Chest Expansion and Respiratory Effort, Clear to Auscultation Cardiovascular: NL Sounds; No Murmurs; No JVD, RRR Abdominal: NL Sounds; No Tenderness; No Distention Lymphatic: No Cervical Adenopathy Extremities: No Edema, No Clubbing, Cyanosis Skin: No Rash or Ulcers, No Nodules or Sclerosis Neurological: Alert and Oriented x 3, NL Muscle Strength and Tone Result Diagrams: 04/19/16 11:58 04/19/16 11:58 Additional Lab and Data: Lab Results 04/14/16 04/14/16 04/14/16 Range/Units 13:00 13:00 13:00 WBC 6.0 (3.5-10.8) 10^3/ul RBC 4.98 (4.0-5.4) 10^6/ul Hgb 14.9 (14.0-18.0) g/dl Hct 44 (42-52) % MCV 88 (80-94) fL MCH 30 (27-31) pg MCHC 34 (31-36) g/dl RDW 13 (10.5-15) % Plt Count 189 (150-450) 10^3/ul MPV 10 (7.4-10.4) um3 Neut % (Auto) 68.9 (38-83) % Lymph % (Auto) 21.9 L (25-47) % [place] % (Auto) 7.5 (1-9) % Eos % (Auto) 1.2 (0-6) % Baso % (Auto) 0.5 (0-2) % Absolute Neuts (auto) 4.1 (1.5-7.7) 10^3/ul Absolute Lymphs (auto) 1.3 (1.0-4.8) 10^3/ul Absolute Monos (auto) 0.4 (0-0.8) 10^3/ul Absolute Eos (auto) 0.1 (0-0.6) 10^3/ul Absolute Basos (auto) 0 (0-0.2) 10^3/ul Absolute Nucleated RBC 0.01 10^3/ul Nucleated RBC % 0.2 INR (Anticoag Therapy) 0.97 (0.89-1.11) Sodium 138 (133-145) mmol/L Potassium 4.0 (3.5-5.0) mmol/L Chloride 106 (101-111) mmol/L Carbon Dioxide 27 (22-32) mmol/L Anion Gap 5 (2-11) mmol/L BUN 11 (6-24) mg/dL Creatinine 0.74 (0.67-1.17) mg/dL Est GFR ( Amer) 136.5 (>60) Est GFR (Non-Af Amer) 106.2 (>60) BUN/Creatinine Ratio 14.9 (8-20) Glucose 102 H (70-100) mg/dL Lactic Acid (0.5-2.0) mmol/L Calcium 9.5 (8.6-10.3) mg/dL Magnesium 2.2 (1.9-2.7) mg/dL Total Bilirubin 0.70 (0.2-1.0) mg/dL AST 17 (13-39) U/L ALT 16 (7-52) U/L Alkaline Phosphatase 56 (34-104) U/L Total Creatine Kinase 146 (10-223) U/L Troponin I 0.01 (<0.04) ng/mL B-Natriuretic Peptide ( - 100) pg/mL Total Protein 6.4 (6.4-8.9) g/dL Albumin 4.0 (3.2-5.2) g/dL Globulin 2.4 (2-4) g/dL Albumin/Globulin Ratio 1.7 (1-3) TSH 0.67 (0.34-5.60) mcIU/mL Urine Color Urine Appearance Urine pH (5-9) Ur Specific [place] (1.010-1.030) Urine Protein (Negative) Urine Ketones (Negative) Urine Blood (Negative) Urine Nitrate (Negative) Urine Bilirubin (Negative) Urine Urobilinogen (Negative) Ur Leukocyte Esterase (Negative) Urine Glucose (Negative) Urine Ascorbic Acid (Negative) Salicylates < 2.50 (<30) mg/dL Urine Opiates Screen (None Detect) Acetaminophen < 15 mcg/mL Ur Barbiturates Screen (None Detect) Ur Phencyclidine Scrn (None Detect) Ur Amphetamines Screen (None Detect) U Benzodiazepines Scrn (None Detect) Urine Cocaine Screen (None Detect) U Cannabinoids Screen (None Detect) Serum Alcohol < 10 (<10) mg/dL 04/14/16 04/14/16 04/14/16 Range/Units 13:00 13:00 15:43 WBC (3.5-10.8) 10^3/ul RBC (4.0-5.4) 10^6/ul Hgb (14.0-18.0) g/dl Hct (42-52) % MCV (80-94) fL MCH (27-31) pg MCHC (31-36) g/dl RDW (10.5-15) % Plt Count (150-450) 10^3/ul MPV (7.4-10.4) um3 Neut % (Auto) (38-83) % Lymph % (Auto) (25-47) % [place] % (Auto) (1-9) % Eos % (Auto) (0-6) % Baso % (Auto) (0-2) % Absolute Neuts (auto) (1.5-7.7) 10^3/ul Absolute Lymphs (auto) (1.0-4.8) 10^3/ul Absolute Monos (auto) (0-0.8) 10^3/ul Absolute Eos (auto) (0-0.6) 10^3/ul Absolute Basos (auto) (0-0.2) 10^3/ul Absolute Nucleated RBC 10^3/ul Nucleated RBC % INR (Anticoag Therapy) (0.89-1.11) Sodium (133-145) mmol/L Potassium (3.5-5.0) mmol/L Chloride (101-111) mmol/L Carbon Dioxide (22-32) mmol/L Anion Gap (2-11) mmol/L BUN (6-24) mg/dL Creatinine (0.67-1.17) mg/dL Est GFR ( Amer) (>60) Est GFR (Non-Af Amer) (>60) BUN/Creatinine Ratio (8-20) Glucose (70-100) mg/dL Lactic Acid 0.9 (0.5-2.0) mmol/L Calcium (8.6-10.3) mg/dL Magnesium (1.9-2.7) mg/dL Total Bilirubin (0.2-1.0) mg/dL AST (13-39) U/L ALT (7-52) U/L Alkaline Phosphatase (34-104) U/L Total Creatine Kinase (10-223) U/L Troponin I (<0.04) ng/mL B-Natriuretic Peptide 18 ( - 100) pg/mL Total Protein (6.4-8.9) g/dL Albumin (3.2-5.2) g/dL Globulin (2-4) g/dL Albumin/Globulin Ratio (1-3) TSH (0.34-5.60) mcIU/mL Urine Color Yellow Urine Appearance Cloudy Urine pH 6.0 (5-9) Ur Specific [place] 1.019 (1.010-1.030) Urine Protein Negative (Negative) Urine Ketones Negative (Negative) Urine Blood Negative (Negative) Urine Nitrate Negative (Negative) Urine Bilirubin Negative (Negative) Urine Urobilinogen Negative (Negative) Ur Leukocyte Esterase Negative (Negative) Urine Glucose Negative (Negative) Urine Ascorbic Acid * H (Negative) Salicylates (<30) mg/dL Urine Opiates Screen (None Detect) Acetaminophen mcg/mL Ur Barbiturates Screen (None Detect) Ur Phencyclidine Scrn (None Detect) Ur Amphetamines Screen (None Detect) U Benzodiazepines Scrn (None Detect) Urine Cocaine Screen (None Detect) U Cannabinoids Screen (None Detect) Serum Alcohol (<10) mg/dL 04/14/16 Range/Units 15:43 WBC (3.5-10.8) 10^3/ul RBC (4.0-5.4) 10^6/ul Hgb (14.0-18.0) g/dl Hct (42-52) % MCV (80-94) fL MCH (27-31) pg MCHC (31-36) g/dl RDW (10.5-15) % Plt Count (150-450) 10^3/ul MPV (7.4-10.4) um3 Neut % (Auto) (38-83) % Lymph % (Auto) (25-47) % [place] % (Auto) (1-9) % Eos % (Auto) (0-6) % Baso % (Auto) (0-2) % Absolute Neuts (auto) (1.5-7.7) 10^3/ul Absolute Lymphs (auto) (1.0-4.8) 10^3/ul Absolute Monos (auto) (0-0.8) 10^3/ul Absolute Eos (auto) (0-0.6) 10^3/ul Absolute Basos (auto) (0-0.2) 10^3/ul Absolute Nucleated RBC 10^3/ul Nucleated RBC % INR (Anticoag Therapy) (0.89-1.11) Sodium (133-145) mmol/L Potassium (3.5-5.0) mmol/L Chloride (101-111) mmol/L Carbon Dioxide (22-32) mmol/L Anion Gap (2-11) mmol/L BUN (6-24) mg/dL Creatinine (0.67-1.17) mg/dL Est GFR ( Amer) (>60) Est GFR (Non-Af Amer) (>60) BUN/Creatinine Ratio (8-20) Glucose (70-100) mg/dL Lactic Acid (0.5-2.0) mmol/L Calcium (8.6-10.3) mg/dL Magnesium (1.9-2.7) mg/dL Total Bilirubin (0.2-1.0) mg/dL AST (13-39) U/L ALT (7-52) U/L Alkaline Phosphatase (34-104) U/L Total Creatine Kinase (10-223) U/L Troponin I (<0.04) ng/mL B-Natriuretic Peptide ( - 100) pg/mL Total Protein (6.4-8.9) g/dL Albumin (3.2-5.2) g/dL Globulin (2-4) g/dL Albumin/Globulin Ratio (1-3) TSH (0.34-5.60) mcIU/mL Urine Color Urine Appearance Urine pH (5-9) Ur Specific [place] (1.010-1.030) Urine Protein (Negative) Urine Ketones (Negative) Urine Blood (Negative) Urine Nitrate (Negative) Urine Bilirubin (Negative) Urine Urobilinogen (Negative) Ur Leukocyte Esterase (Negative) Urine Glucose (Negative) Urine Ascorbic Acid (Negative) Salicylates (<30) mg/dL Urine Opiates Screen None detected (None Detect) Acetaminophen mcg/mL Ur Barbiturates Screen None detected (None Detect) Ur Phencyclidine Scrn None detected (None Detect) Ur Amphetamines Screen None detected (None Detect) U Benzodiazepines Scrn None detected (None Detect) Urine Cocaine Screen None detected (None Detect) U Cannabinoids Screen None detected (None Detect) Serum Alcohol (<10) mg/dL Microbiology and Other Data: Microbiology 04/19/16 08:35 Influenza Types A,B Antigen (ANNY) - Final Nasal Specimen received for Influenza A/B Molecular testing 04/18/16 16:00 Stool Gross Appearance - Final Stool C. 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 No abd pain, normal bili. will monitor in aM. (2) Diarrhea Comment: resolved. stool neg for C. diff (3) Altered mental status Comment: appreciate neurology assistance neurodegenerative disorder with Lewy body dementia on differential will need [facility] care (4) CAD (coronary artery disease) Comment: Stable. No active issues.Continue ASA, BB and statin. (5) Retinitis pigmentosa Comment: Patient can discern faces (6) DVT prophylaxis Comment: lovenox Status and Disposition: inpatient, to STR once medially ready-suspect tomorrow
[2016-04-19] MEDS: Enoxaparin(*) 40 MG/0.4 ML SYR SUBCUT SCH (17:38)
[2016-04-19] MEDS: Atorvastatin* 10 MG TAB PO SCH (17:39)
[2016-04-20 07:47] LABS: Hematocrit 46 % (42-52); Hemoglobin 15.9 g/dl (14.0-18.0); Mean Corpuscular HGB Conc 35 g/dl (31-36); Mean Corpuscular Hemoglobin 30 pg (27-31); Mean Corpuscular Volume 87 fL (80-94); Mean Platelet Volume 10 um3 (7.4-10.4); Red Blood Count 5.28 10^6/ul (4.0-5.4); Red Cell Distribution Width 13 % (10.5-15); White Blood Count 4.7 10^3/ul (3.5-10.8)
[2016-04-20 07:56] LABS: Albumin 3.8 g/dL (3.2-5.2); BUN/Creatinine Ratio 17.8 (8-20); Calcium 8.9 mg/dL (8.6-10.3); EGFR African American 138.7 (>60); EGFR Non-African American 107.8 (>60); Globulin 2.5 g/dL (2-4); Total Bilirubin 0.6 mg/dL (0.2-1.0); Total Protein 6.3 g/dL (6.4-8.9)
[2016-04-20 08:07] LABS: Potassium 4.3 mmol/L (3.5-5.0)
[2016-04-20] MEDS: Metoprolol Succinate XL TAB* 25 MG PO SCH (09:40)
[2016-04-20] MEDS: Aspirin EC Low Dose* 81 MG TAB.EC PO SCH (09:40)
[2016-04-20] MEDS: Cetirizine* 10 MG TAB PO SCH (09:40)
[2016-04-20] MEDS: Atorvastatin* 10 MG TAB PO SCH (17:12)
[2016-04-20] MEDS: Enoxaparin(*) 40 MG/0.4 ML SYR SUBCUT SCH (17:12)
--- NOTE | 2016-04-20 18:47 | PN ---
Subjective Date of Service: 04/20/16 Interval History: Interviewed and examined patient at bedside; Discussed case with Dr. Allison ; Reviewed previous notes and radiology results; patient denies new s/sx . Family History: Findings - unremarkable. Social History: Findings - Never smoked. Binge drinker until 06/2015. Lives alone. SDM is his daughter Patrica at [phone] Past Medical History: Findings - Cardiac stent 2000, cataract x 2, retinitis pigmentosa, cholecystectomy. Skin cancer followed by Dr. Grewal. Objective Active Medications: Acetaminophen (Tylenol Tab*) 650 mg PO Q6H PRN PRN Reason: PAIN Last Admin: 04/18/16 15:43 Dose: 650 mg Aspirin (Aspirin Ec Low Dose*) 81 mg PO DAILY [facility] Last Admin: 04/20/16 09:40 Dose: 81 mg Atorvastatin Calcium (Lipitor*) 10 mg PO 1700 [facility] Last Admin: 04/20/16 17:12 Dose: 10 mg Bismuth Subsalicylate (Peptic Relief*) 524 mg PO Q2H PRN PRN Reason: INDIGESTION Cetirizine HCl (Zyrtec*) 10 mg PO DAILY [facility] Last Admin: 04/20/16 09:40 Dose: 10 mg Enoxaparin Sodium (Lovenox(*)) 40 mg SUBCUT Q24H [facility] Last Admin: 04/20/16 17:12 Dose: 40 mg Metoprolol Succinate (Toprol Xl Tab*) 25 mg PO DAILY [facility] Last Admin: 04/20/16 09:40 Dose: 25 mg Polyvinyl Alcohol (Polyvinyl Alcohol 1.4% Opth*) 1 drop BOTH EYES Q2H PRN PRN Reason: DRY EYE Vital Signs 04/19/16 04/20/16 04/20/16 23:39 00:04 00:07 Temperature 97.4 F Pulse Rate 77 Respiratory 16 18 18 Rate Blood Pressure 120/76 (mmHg) O2 Sat by Pulse 96 Oximetry 04/20/16 04/20/16 04/20/16 07:37 08:00 15:31 Temperature 98.0 F 98.0 F Pulse Rate 67 77 Respiratory 18 16 Rate Blood Pressure 117/64 112/60 (mmHg) O2 Sat by Pulse 97 96 Oximetry Oxygen Devices in Use Now: None Appearance: NAD Eyes: No Scleral Icterus Ears/Nose/Mouth/Throat: Clear Oropharnyx Neck: Trachea Midline Respiratory: Symmetrical Chest Expansion and Respiratory Effort Cardiovascular: NL Sounds; No Murmurs; No JVD, No Edema Abdominal: NL Sounds; No Tenderness; No Distention Lymphatic: No Cervical Adenopathy Extremities: No Edema Skin: No Rash or Ulcers Neurological: Alert and Oriented x 3 Lines/Tubes/Other Access: Clean, Dry and Intact Peripheral IV Nutrition: Taking PO's Result Diagrams: 04/20/16 07:26 04/20/16 07:26 Microbiology and Other Data: Microbiology 04/19/16 08:35 Influenza Types A,B Antigen (ANNY) - Final Nasal Specimen received for Influenza A/B Molecular testing 04/18/16 16:00 Stool Gross Appearance - Final Stool C. 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 No active issues. Continue ASA, BB and statin. (3) DVT prophylaxis Current Visit: Yes Status: Acute Priority: High Code(s): VMH7361 - Comment: lovenox (4) Diarrhea Current Visit: Yes Status: Acute Priority: High Code(s): R19.7 - DIARRHEA , UNSPECIFIED Comment: resolved. stool neg for C. diff (5) Fever Current Visit: Yes Status: Acute Priority: High Code(s): R50.9 - FEVER, UNSPECIFIED Comment: with LFT's elevation. No abd pain, normal bili. will monitor in aM. (6) Full code status Current Visit: Yes Status: Acute Priority: High Code(s): Z78.9 - OTHER SPECIFIED HEALTH STATUS (7) Gait abnormality Current Visit: Yes Status: Acute Code(s): R26.9 - UNSPECIFIED ABNORMALITIES OF GAIT AND MOBILITY Comment: Appreciate neurology's input. They feel the patient likely has a pro gressive neurodegenerative disorder that can only be treated symptomatically. Does not have capacity to refuse NH/SNF. (8) Retinitis pigmentosa Current Visit: Yes Status: Acute Priority: High Code(s): H35.52 - PIGMENTARY RETINAL DYSTROPHY Comment: Patient can discern faces (9) Speaking difficulty Current Visit: Yes Status: Acute Comment: Speech is slow . Speech therapy consult appreciated. Minimal dysarthria.
--- NOTE | 2016-04-21 07:52 | PN ---
Hospitalist Progress Note . HOSPITALIST DISCHARGE NOTE: See dc instructions and summary by me. Patient stable for dc dc instructions reviewed with the patient at the bedside. DC patient to CT today.
[2016-04-21 08:09] VITALS: BP 153/86
[2016-04-21] MEDS: Aspirin EC Low Dose* 81 MG TAB.EC PO SCH (08:14)
[2016-04-21] MEDS: Cetirizine* 10 MG TAB PO SCH (08:14)
[2016-04-21] MEDS: Metoprolol Succinate XL TAB* 25 MG PO SCH (08:19)
--- NOTE | 2016-04-21 09:11 | DS ---
DISCHARGE/TRANSFER SUMMARY: DATE OF ADMISSION: 04/14/16 DATE OF DISCHARGE: 04/21/16 PRIMARY CARE PROVIDER: Dr. Mahi Lopez OUTPATIENT NEUROLOGIST: Dr. Miguelina Blanc. CONSULTING NEUROLOGIST: Dr. Jim Galvez. DISPOSITION: The patient is being transferred to [facility]. PRINCIPAL DISCHARGE DIAGNOSES: 1. Progressive neurodegenerative disorder with differential diagnosis including Parkinson's disease or Lewy body dementia. 2. 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 SECONDARY DIAGNOSES: 1. Squamous cell carcinoma of the skin. 2. Hyperlipidemia. 3. Gait abnormality. 4. Coronary artery disease, status post stent in 2000. 5. History of cataracts bilaterally. 6. History of cholecystectomy. 7. Followed by Dr. Grewal for squamous cell carcinoma. TRANSFER MEDICATION REGIMEN: 1. Acetaminophen 650 mg every 6 hours as needed for pain/fever. 2. Cetirizine 10 mg by mouth daily. 3. Aspirin, enteric-coated, 81 mg by mouth daily. 4. Metoprolol XL 25 mg by mouth daily. 5. Simvastatin 20 mg by mouth at bedtime. 6. Polyvinyl alcohol-povidone ophthalmic drops 4 times daily. HISTORY OF PRESENT ILLNESS AND HOSPITAL COURSE AND DISCHARGE SUMMARY: Please see the history and physical by Dr. Matthew Murphy as well as the Neurology consultation by Dr. Jim Galvez both on 04/14/16. In brief, Mr. Abrams is a 65- year-old gentleman who came to the hospital because of a progressive and accelerating decline in his cognitive function and his extrapyramidal disorder. Dr. Galvez evaluated the patient in the emergency room and spoke with Dr. Blanc, who recommended the patient be seen in the emergency room. The patient is having progressive problems with his visions since May 2015 secondary to retinitis pigmentosa. The patient was deemed legally blind later in 2015. He has recently been having problems with repetitive falls with features noted consistent with extra-pyramidal disorder. The patient had an MRI of his brain showing some atrophy and nonspecific white matter changes. He had generally a normal laboratory workup including B12, methylmalonic acid, serum protein electrophoresis, and other routine labs. I believe he is also tested for neurosyphilis. The patient has been developing progressive memory problems and ultimately hallucinations and delusions. The patient was seen by a friend and noticed difficulty with him preparing food, again he has been falling and he was recommended for admission and deemed not safe for outpatient independent living. During the hospitalization, the patient was seen by Psychiatry, who deemed him without capacity to make decisions with respect to his placement because of his inability to appreciate the safety concerns inherent with him being discharged with his current situation. He is cooperative with the placements in a nursing facility at this time. He is being transferred there and will continue to be seen in the outpatient setting by Neurology and his primary care doctor. The patient is currently stable for transfer on the morning of 04/21/16. Routine return to ED instructions were communicated to the patient as well as to the staff. There are no special instructions for care other than the safety concerns inherent to the patient's blindness and gait disorder. TIME SPENT: Total time taken to transfer Mr. Abrams was 65 minutes, greater than half the time spent going over the discharge process with the patient and communicating the findings of the hospitalization including the consultations from Neurology and Psychiatry and his MOLD BLOWER imaging and current status. CONDITION AT TRANSFER: Stable. CC: Dr. Lopez; Dr. Blanc; Dr. Galvez* [id number]/[facility] #: [id number]
== END 2016-04-21 10:10 | DRG 57 ==
LOC: ED 12:07 → MED 17:02 → OBSVTOIN 04-15 09:00 → MED 04-17 04:01
PROVIDERS: ADMIT Internal Medicine; ATTEND Internal Medicine
DX: G31.9 Degenerative disease of nervous system, unspecified (principal); G31.83 Neurocognitive disorder with Lewy bodies; F02.80 Dementia in other diseases classified elsewhere, unspecified severity, without behavioral disturbance, psychotic disturbance, mood disturbance, and anxiety; I25.10 Atherosclerotic heart disease of native coronary artery without angina pectoris; H35.52 Pigmentary retinal dystrophy; G47.30 Sleep apnea, unspecified; R47.1 Dysarthria and anarthria; H54.8 Legal blindness, as defined in USA; R19.7 Diarrhea, unspecified; E78.5 Hyperlipidemia, unspecified; Z85.828 Personal history of other malignant neoplasm of skin; Z98.61 Coronary angioplasty status; Z79.82 Long term (current) use of aspirin; Z91.81 History of falling
CPT/HCPCS: 36415; 70450; 71010; 80053; 80307; 80320; 80329; 81003; 82550; 83605; 83735; 83880; 84443; 84484; 85025; 85027; 85610; 86140; 87493; 87502; 93005; A9270-GY; G0480; G8999-GN-CH; G9158-GN-CH; G9159-GN-CH; G9160-GN-CH; G9161-GN-CH; G9162-GN-CH; G9163-GN-CH; G9164-GN-CH; G9165-GN-CH; G9166-GN-CH; G9167-GN-CH; G9168-GN-CH; G9169-GN-CH; G9170-GN-CH; G9186-GN-CH; J1650

== ENCOUNTER 2016-07-06 18:06 | Emergency (ER) | payer MEDICARE ==
--- NOTE | 2016-07-06 20:02 | RAD ---
INDICATION: Intracranial injury COMPARISON: April 14, 2016 TECHNIQUE: Noncontrast axial source images were acquired from the skull base to the vertex. FINDINGS: Ventricles/sulci: The ventricles and cisterns are normal in size and configuration for age. Brain parenchyma: There is no focal parenchymal finding, evidence of intracranial mass, or intracranial mass effect. Intracranial hemorrhage:None. Extra-axial spaces: There are no abnormal extra axial fluid collections or evidence of extra-axial mass. Calvarium: There is no calvarial fracture or other calvarial abnormality. Scalp: There is no evidence of scalp or extracalvarial soft tissue abnormality. Paranasal sinuses/mastoid: The paranasal sinuses and mastoid air cells are clear. Other: None. IMPRESSION: No acute intracranial findings.
--- NOTE | 2016-07-06 20:03 | RAD ---
INDICATION: Facial trauma COMPARISON: CT June 23, 2015 TECHNIQUE: Axial source images were acquired from the vertex of the mandible through the orbits. Coronal and sagittal reconstructed images were acquired. FINDINGS: Bones: There is no acute facial bone fracture. Orbits: The globes and intraconal structures appear intact. The optic nerves are symmetric. Extraocular muscles appear normal. There is no intraconal inflammatory change or retrobulbar mass.. Paranasal sinuses: The paranasal sinuses are clear. Brain: There are no acute abnormalities of the visualized brain parenchyma. Soft tissues: Normal Other: None The visualized soft tissue elements about the neck appear normal. IMPRESSION: NO ACUTE FACIAL BONE FRACTURE.
--- NOTE | 2016-07-06 20:04 | RAD ---
INDICATION: Fall. Neck pain. COMPARISON: None TECHNIQUE: Noncontrast axial source images was performed from the skull base to the thoracic inlet. Coronal and and sagittal reformatted images were generated. FINDINGS: Vertebrae: There is no fracture or acute focal bony lesion. Alignment: The craniocervical junction appears normal. The cervical vertebrae are normally aligned. Central Canal: There are no significant CT abnormalities of the central canal or foramina. MR imaging is a more sensitive method to evaluate the canal and foramina. Intervertebral disc spaces: There is degenerative disc disease from C4 through C7 with endplate sclerosis and marginal osteophyte formation. There is multilevel facet arthropathy. Brain: The visualized brain appears unremarkable. Soft tissues: The visualized soft tissue elements of the neck are unremarkable. The prevertebral soft tissues appear normal. The lung apices are clear. IMPRESSION: MID CERVICAL SPINE OSTEOARTHRITIS. NO ACUTE FINDINGS.
--- NOTE | 2016-07-06 21:11 | ED ---
Marie Cunha SooYoung, scribed for Bonifacio Landa MD on 07/06/16 at 1902 . Head Injury - HPI Summary HPI Summary: A 66 y/o M presents to ED after a fall from standing onset hours [employer]. Pt was with a friend and as they were getting off the bus, his pants started to slip down. He got off the bus OK, but as he adjusted his belt, he started to fall. Both his friend and the pt, the friend broke his fall, but the pt still hit the front of his head on the sidewalk. He denies LOC. Pt has mild head pain, abrasion to his head, R shoulder and small avulsion on nose. His friend notes that pt has BCC at the same location on his nose where he hit. Pt is legally blind. Pt takes daily aspirin. - History Of Current Complaint Chief Complaint: EDHeadInjury Stated Complaint: FALL/HEAD INJURY Time Seen by Provider: 07/06/16 18:59 Hx Obtained From: Patient, Family/Towel Sewer Mechanism Of Injury: Fall From A Standing Position Onset/Duration: Started Hours Ago, Still Present Onset of Pain: Immediate Severity Currently: Moderate Severity Initially: Mild Pain Intensity: 0 Pain Scale Used: 0-10 Numeric Location of Head Injury: Frontal Associated Signs And Symptoms: Other: - abrasions on forehead, nose, shoulder - Allergies/Home Medications Allergies/Adverse Reactions: Allergies Allergy/AdvReac Type Severity Reaction Status Date / Time Bee Venom Allergy Unknown Swelling Verified 04/15/16 12:32 Adhesives Allergy Mild Itching Uncoded 04/16/16 03:40 PMH/Surg Hx/FS Hx/Imm Hx Previously Healthy: No Endocrine/Hematology History: Denies: Hx Diabetes, Hx Systemic Lupus Erythematosus Cardiovascular History: Reports: Hx Hypertension Denies: Hx Congestive Heart Failure, Hx Pacemaker/ICD Respiratory History: Reports: Hx Sleep Apnea - HISTORY OF DOESN'T USE A MACHINE Musculoskeletal History: Denies: Hx Arthritis, Hx Rheumatoid Arthritis, Hx Osteoporosis Sensory History: Reports: Hx Cataracts, Hx Contacts or Glasses Denies: Hx Hearing Aid Opthamlomology History: Reports: Hx Cataracts, Hx Contacts or Glasses, Hx Legally Blind Neurological History: Reports: Hx Dementia Psychiatric History: Denies: Hx Panic Disorder - Cancer History Cancer Type, Location and Year: skin CA - Surgical History Surgery Procedure, Year, and Place: CHOLECYSECTOMY 2008 [facility] [place]. CARDIAC STENT 2000 [facility]. excisional biopsy of skin CA right collar bone, skin ca removed right cheek and skull cateract surgury 2 yrs ago. RP DISEASE DIGANOSED IN THE YEAR 1979 Hx Anesthesia Reactions: No - Immunization History Date of Influenza Vaccine: 12/08/2015 Infectious Disease History: No Infectious Disease History: Denies: Traveled Outside the [place] in Last 30 Days - Family History Known Family History: Positive: Cardiac Disease - Social History Occupation: Employed Full-time Lives: Alone Alcohol Use: Rare Hx Substance Use: No Substance Use Type: Reports: None Hx Tobacco Use: No Smoking Status (MU): Never Smoked Tobacco Review of Systems Positive: Other - abrasions to R forehead and R shoulder; avulsion to nose Positive: Headache - mild All Other Systems Reviewed And Are Negative: Yes Physical Exam Vital Signs On Initial Exam: Initial Vitals Temp Pulse Resp BP Pulse Ox 98.7 F 88 18 132/81 97 07/06/16 18:08 07/06/16 18:08 07/06/16 18:08 07/06/16 18:08 07/06/16 18:08 Appearance: Positive: Well-Appearing, No Pain Distress Skin: Positive: Warm, Skin Color Reflects Adequate Perfusion, Dry, Other - 2.5 CM ABRASION TO R FOREHEAD; 4MM AVULSION ON TIP OF NOSE; NO ACTIVE BLEEDING; ABRASION TO R SHOULDER Head/Face: Positive: Normal Head/Face Inspection Eyes: Positive: Other: - LEGALLY BLIND ENT: Positive: Normal ENT inspection Neck: Positive: Supple, Nontender Musculoskeletal: Positive: Normal, Strength/ROM Intact Neurological: Positive: Normal, Sensory/Motor Intact, Alert, Oriented to Person Place, Time Psychiatric: Positive: Affect/Mood Appropriate - Cherelle Coma Scale Best Eye Response: 4 - Spontaneous Best Motor Response: 6 - Obeys Commands Best Verbal Response: 5 - Oriented Coma Scale Total: 15 Diagnostics - Vital Signs Vital Signs Temp Pulse Resp BP Pulse Ox 07/06/16 18:53 98.4 F 82 20 131/71 95 07/06/16 18:08 98.7 F 88 18 132/81 97 - Laboratory Lab Statement: Any lab studies that have been ordered have been reviewed, and results considered in the medical decision making process. - CT BRAIN CT CT Interpretation: No Acute Changes - IMPRESSION: No acute intracranial findings. CT Interpretation Completed By: Radiologist C SPINE CT CT Interpretation: No Acute Changes - IMPRESSION: MID CERVICAL SPINE OSTEOARTHRITIS. NO ACUTE FINDINGS CT Interpretation Completed By: Radiologist MAXILLOFACIAL CT CT Interpretation: No Acute Changes - IMPRESSION: No acute facial bone fracture CT Interpretation Completed By: Radiologist - EKG 1 Cardiac Rate: NL - 85 bpm EKG Rhythm: Sinus Rhythm ST Segment: Normal Ectopy: None EKG Interpretation: large T wave in anterior leads Re-Evaluation - Re-Evaluation 1 Re-Evaluation Time: 20:59 Change: Unchanged Comment: Discussing CT results with pt. Head Injury Course/Dx Course Of Treatment: Pt is 66 y/o M presenting after a fall from standing. Pt hit the front of his head on the sidewalk. Denies LOC. Pt has mild head pain, abrasion to his head, R shoulder and small avulsion on nose. Pt takes daily aspirin. EKG is NSR, with large T waves in anterior leads. C-Spine, maxillofacial and brain CTs were all neg for acute findings. NO CRITICAL CARE TIME. FACIAL WOUNDS DID NOT REQUIRE CLOSURE. DISCHARGE HOME STABLE. - Diagnoses Provider Diagnoses: Head injury, Facial abrasion Discharge - Discharge Plan Condition: Stable Disposition: HOME Patient Education Materials: Head Injury (ED), Abrasion (ED) Referrals: Mahi Lopez MD [Primary Care Provider] - Additional Instructions: FOLLOW UP WITH YOUR DOCTOR. KEEP THE FACIAL ABRASION MOIST WITH ANTIBIOTIC OINTMENT TO DECREASE SCARRING. RETURN TO THE EMERGENCY DEPARTMENT FOR ANY WORSENING OF YOUR CONDITION; PAIN, WEAKNESS, NUMBNESS, DIFFICULTY WITH SPEECH OR QUESTIONS OR CONCERNS. The documentation as recorded by the Marie mancuso SooYoung accurately reflects the service I personally performed and the decisions made by me, Bonifacio Landa MD.
[2016-07-06 21:46] VITALS: BP 139/91
== END 2016-07-06 22:30 | disposition home or self-care (01) ==
LOC: ED 18:06
DX: S00.81XA Abrasion of other part of head, initial encounter (principal); S09.90XA Unspecified injury of head, initial encounter; W19.XXXA Unspecified fall, initial encounter; Y92.89 Other specified places as the place of occurrence of the external cause; Z79.82 Long term (current) use of aspirin; H54.8 Legal blindness, as defined in USA; F03.90 Unspecified dementia, unspecified severity, without behavioral disturbance, psychotic disturbance, mood disturbance, and anxiety
CPT/HCPCS: 70450; 70486; 72125; 93005; 99283

== ENCOUNTER 2016-09-13 15:18 | Emergency (ER) | payer MEDICARE ==
--- NOTE | 2016-09-13 16:37 | ED ---
Head Injury - HPI Summary HPI Summary: 66 male presents via EMS in [facility] from [facility] from a mechanical fall that was witnessed and without LOC just prior to arrival. Patient complains of neck pain but denies headache or head pain. Did hit his head. Laceration sustained to posterior head, oozing blood States he sometimes gets dizzy and has these falls. No syncope or seizure activity. Has had trouble walking for the past couple of months and has been in the process of working up for it. Possible parkinsons. Patient is legally blind. No complaints of injuries to extremities or abdomen. States he fell forward and than backward. Denies facial tenderness. No nausea, vomiting or tinnitus. PMHx significant for HTN and cardiac stent. Taking baby aspirin twice daily. No other anticoagulants. - History Of Current Complaint Chief Complaint: EDHeadInjury Stated Complaint: HEAD LAC Time Seen by Provider: 09/13/16 15:42 Hx Obtained From: Patient, Family/[employer]ing [employer] St[employer] Supervisor - [facility], family member, EMS Mechanism Of Injury: Blunt Trauma, Fall From A Standing Position Onset/Duration: Started Hours Ago, Traumatic Onset of Pain: Immediate, Post Accident Severity Currently: Mild Severity Initially: Mild Pain Intensity: 2 Pain Scale Used: 0-10 Numeric Location of Head Injury: Occipital Location: Discrete At: - neck and posterior head lac Character: Aching - neck Aggravating Factor(s): Other: - nothing Alleviating Factor(s): Other: - nothing Associated Signs And Symptoms: Neck Pain - Allergies/Home Medications Allergies/Adverse Reactions: Allergies Allergy/AdvReac Type Severity Reaction Status Date / Time Bee Venom Allergy Unknown Swelling Verified 04/15/16 12:32 Adhesives Allergy Mild Itching Uncoded 04/16/16 03:40 PMH/Surg Hx/FS Hx/Imm Hx Endocrine/Hematology History: Denies: Hx Anticoagulant Therapy, Hx Diabetes, Hx Systemic Lupus Erythematosus Cardiovascular History: Reports: Hx Hypertension Denies: Hx Congestive Heart Failure, Hx Pacemaker/ICD Respiratory History: Reports: Hx Sleep Apnea - HISTORY OF DOESN'T USE A MACHINE Musculoskeletal History: Denies: Hx Arthritis, Hx Rheumatoid Arthritis, Hx Osteoporosis Sensory History: Reports: Hx Cataracts, Hx Contacts or Glasses, Hx Legally Blind Denies: Hx Hearing Aid Opthamlomology History: Reports: Hx Cataracts, Hx Contacts or Glasses, Hx Legally Blind Neurological History: Reports: Hx Dementia Psychiatric History: Denies: Hx Panic Disorder - Cancer History Cancer Type, Location and Year: skin CA - Surgical History Surgery Procedure, Year, and Place: [place] [facility] [place] 2000 [facility]. excisional biopsy of skin CA right collar bone, skin ca removed right cheek and skull, cateract surgery 2 yrs ago. RP DISEASE DIGANOSED IN THE YEAR 1979 Hx Anesthesia Reactions: No - Immunization History Date of Tetanus Vaccine: TD 2014 Date of Influenza Vaccine: 12/08/2015 Infectious Disease History: No Infectious Disease History: Denies: Traveled Outside the [place] in Last 30 Days - Family History Known Family History: Positive: Cardiac Disease - Social History Alcohol Use: Occasionally Hx Substance Use: No Substance Use Type: Reports: None Hx Tobacco Use: No Smoking Status (MU): Never Smoked Tobacco Review of Systems Constitutional: Negative Eyes: Negative ENT: Negative Cardiovascular: Negative Respiratory: Negative Gastrointestinal: Negative Genitourinary: Negative Positive: Arthralgia, Myalgia - neck Positive: Other - laceration to posterior head Neurological: Negative Psychological: Normal All Other Systems Reviewed And Are Negative: Yes Physical Exam Triage Information Reviewed: Yes Vital Signs On Initial Exam: Initial Vitals Temp Pulse Resp BP Pulse Ox 98.8 F 67 16 124/70 96 09/13/16 15:22 09/13/16 15:22 09/13/16 15:22 09/13/16 15:22 09/13/16 15:22 Vital Signs Reviewed: Yes Appearance: Positive: Well-Appearing, No Pain Distress, Well-Nourished Skin: Positive: Warm, Skin Color Reflects Adequate Perfusion, Dry, Other - 5cm linear laceration to posterior scalp, oozing. no FB superficial epidermal layer. Negative: Cold, Numb, Pale, Erythema @ Head/Face: Positive: Normal Head/Face Inspection, Scalp - laceration noted above , Other - right posterior parietal area hematoma noted, along with laceration. no epistaxis, battles signs, racoon eyes or facial bone tenderness Eyes: Positive: Conjunctiva Clear, Other: - patient is legally bline. Negative : EOMI, CINDY ENT: Positive: Normal ENT inspection, Hearing grossly normal, Pharynx normal, TMs normal Neck: Positive: Supple, No Lymphadenopathy, Tenderness @ - cervical c1-c6 paraspinal muscles and spine Respiratory/Lung Sounds: Positive: Clear to Auscultation, Breath Sounds Present. Negative: Rales, Rhonchi, Stridor Cardiovascular: Positive: Normal, Pulses are Symmetrical in both Upper and Lower Extremities, IRR - atrial fib. Negative: Murmur, Rub Abdomen Description: Positive: Nontender, No Organomegaly, Soft. Negative: Bruit, CVA Tenderness (R), CVA Tenderness (L), Distended, Guarding, McBurney's Point Tenderness, Peritoneal Signs Bowel Sounds: Positive: Present Musculoskeletal: Positive: Normal, Strength/ROM Intact - all extremities, Other - no crepitus, step off or eccyhmosis, edema. normal right hip external apperance. normal length of lower extremities. Negative: Interruption @, Pain @ , Edema Left, Edema Right Neurological: Positive: Normal - normal mentation memory and concentration, Sensory/Motor Intact - sensation intact, Alert, Oriented to Person Place, Time, CN Intact II-III, Reflexes Intact, NV Bundle Intact Distally, Unable to Assess Gait Psychiatric: Positive: Affect/Mood Appropriate - Cherelle Coma Scale Best Eye Response: 1 - None - patient is legally blind, normal finding Best Motor Response: 6 - Obeys Commands Best Verbal Response: 5 - Oriented Coma Scale Total: 15 Procedures - Laceration/Wound Repair 1 Location: head - posterior Description: Linear Length, Depth and Shape: 5cm length, linear, superficial epidermal layer Betadine Prep?: No Irrigated w/ Saline (ccs): 300 Laceration/Wound Explored: clean, no foreign body removed Closure: Joe #__ - 7 Sterile Dressing Applied?: Yes Diagnostics - Vital Signs Vital Signs Temp Pulse Resp BP Pulse Ox 09/13/16 15:22 98.8 F 67 16 124/70 96 - Laboratory Result Diagrams: 09/13/16 17:14 09/13/16 17:14 Lab Statement: Any lab studies that have been ordered have been reviewed, and results considered in the medical decision making process. - CT brain wo CT Interpretation: Positive (See Comments) - No intracranial mass or hemorrhage is noted with atrophy. No skull fractures noted although scalp hematoma is noted in the right parietal area. CT Interpretation Completed By: Radiologist cervical CT Interpretation: No Acute Changes - Multilevel degenerative disc disease is noted. No evidence of fracture is noted. 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 c-collar removed. laceration was stapled (7) without complication after irrigation. tolerated procedure well. dressed. labs obtained, EKG and Urinalysis to rule out other emergent causes of fall, although it was said to be mechanical. All unremarkable, no dehydration or cardiac etiology noted. Not of concern at this time. Appears to be a chronic balance issue. No signs of concussion at this time however may be delayed so patient was educated on signs and symptoms to watch out for. Patient is in no pain, no medication given. Staple care and remove within 7-10 days. Aware of worsening signs and symptoms to watch out for such as infection. Tetanus already UTD ~ 2 years ago. Follow up. At time of discharge patient began complaining of right hip pain. X-ray of right hip obtained. Pending results of x-ray and urinalysis results- patient was signed out to Julianna Cuevas PA-C at shift change 5:40pm. - Diagnoses Differential Diagnosis/HQI/PQRI: Concussion Without LOC, Hematoma, Laceration, Skull Fracture Provider Diagnoses: Laceration of scalp, Head injury due to trauma, Traumatic hematoma of head, Right hip pain - Physician Notifications Discussed Care Of Patient With: Julianna Cuevas PA-C Time Discussed With Above Provider: 17:41 Discharge - Discharge Plan Condition: Stable Disposition: OTHER Discharge Disposition Comment: sign out to Julianna Cuevas PA-C at 6:00pm Patient Education Materials: Head Injury (ED), Laceration (ED), Staple Care (ED ) Referrals: Fernando Red MD [Primary Care Provider] - Additional Instructions: Have joe removed in 7-10 days. Keep clean and dry. Do not scrub. Watch for signs of infection. May keep dressed if desired. Ice hematoma. Rest and fluids. Follow up with PCP. Tylenol for pain and discomfort. If new symptoms or worsening symptoms develop, as discussed please seek medical attention promptly and return to ED.
--- NOTE | 2016-09-13 16:39 | RAD ---
Indication: Fall, head injury. CT of the brain was performed without IV contrast. Comparison is made with previous exam dated July 06, 2016. Ventricular structures are midline. No midline shift is noted. Central and cortical atrophy is noted. There is no evidence of intracranial mass or hemorrhage. Mastoid air cells and bony calvaria are otherwise unremarkable. There is no evidence of intracranial mass or hemorrhage. Scalp hematoma is noted just to the right of midline in the right parietal region. IMPRESSION: No intracranial mass or hemorrhage is noted with atrophy. No skull fractures noted although scalp hematoma is noted in the right parietal area.
--- NOTE | 2016-09-13 16:41 | RAD ---
Indication: Fall, head and neck injury. CT of the brain was performed without IV contrast. Skull base demonstrates no evidence of fracture. The C1 ring is intact. At C2-C3 there is degenerative disc disease noted. Mild ventral osteophyte formation is noted. At C3-C4 spondylitic ridge is noted. Right uncovertebral joint hypertrophy with right facet arthropathy is noted. No central or foraminal stenosis is noted. At C4-C5 spondylitic ridge with left uncovertebral joint hypertrophy and left facet arthropathy is noted. At C5-C6 spondylitic ridge with broad-based protrusion flattens the thecal sac. Right uncovertebral joint hypertrophy narrows the right foramen. At C6-C7 spondylitic ridge flattens the thecal sac. Bilateral uncovertebral joint hypertrophy narrows both foramen. IMPRESSION: Multilevel degenerative disc disease is noted. No evidence of fracture is noted.
[2016-09-13 17:23] LABS: Hematocrit 47 % (42-52); Mean Corpuscular HGB Conc 34 g/dl (31-36); Mean Corpuscular Hemoglobin 30 pg (27-31); Mean Corpuscular Volume 88 fL (80-94); Mean Platelet Volume 10 um3 (7.4-10.4); Red Blood Count 5.31 10^6/ul (4.0-5.4); Red Cell Distribution Width 13 % (10.5-15); White Blood Count 9.6 10^3/ul (3.5-10.8)
[2016-09-13 17:43] LABS: Albumin 4.1 g/dL (3.2-5.2); BUN/Creatinine Ratio 21.6 (8-20); Calcium 9.5 mg/dL (8.6-10.3); EGFR African American 136.1 (>60); EGFR Non-African American 105.8 (>60); Globulin 2.7 g/dL (2-4); Potassium 4.2 mmol/L (3.5-5.0); Total Bilirubin 0.7 mg/dL (0.2-1.0); Total Protein 6.8 g/dL (6.4-8.9)
[2016-09-13 18:35] LABS: Urine Bilirubin Negative (Negative); Urine Glucose Negative (Negative); Urine Nitrite Negative (Negative)
--- NOTE | 2016-09-13 20:04 | RAD ---
INDICATION: Right hip pain after a fall COMPARISON: None TECHNIQUE: 3 views of the right hip were obtained. FINDINGS: The visualized bones of the right hip are well-corticated and properly aligned. The joint spaces are normal. There is no radiographic evidence of acute fracture or dislocation. IMPRESSION: Normal radiograph of the right hip. If the patient's symptoms persist follow-up imaging is recommended.
[2016-09-13 20:33] VITALS: BP 124/75
== END 2016-09-13 21:13 ==
LOC: ED 15:18
DX: S01.01XA Laceration without foreign body of scalp, initial encounter (principal); M54.2 Cervicalgia; W19.XXXA Unspecified fall, initial encounter; Y93.9 Activity, unspecified; Y92.9 Unspecified place or not applicable
CPT/HCPCS: 12002; 36415; 70450; 72125; 80053; 81003; 85025; 93005; 99282

== ENCOUNTER 2016-09-20 09:50 | Day surgery (SDC) | payer MEDICARE ==
[~2016-09-20 09:50] MED LIST: Buffered Lidocaine 0.9% SYRIN* 5 ML/SYR SYRINGE INTRADERM ONE; ceFAZolin* 2 GM in NS 100 MLS Q8HR IVPB ONE
[2016-09-20] MEDS ORDERED: Buffered Lidocaine 0.9% SYRIN* 5 ML/SYR SYRINGE ONE (09:59)
[2016-09-20] MEDS ORDERED: Mineral Oil Sterile, TOPICAL* 25 ML BTL ONE (12:27)
[2016-09-20] MEDS ORDERED: Methylene Blue 1% (ANTIDOTE)* 10 MG/ML 1 ML SDV VIAL IVPB ONE (12:27)
[2016-09-20] MEDS ORDERED: Lidocaine 1.5% EPI 1:200,000* 30 ML SDV ONE (12:41)
[2016-09-20] MEDS ORDERED: fentaNYL* 50 MCG/ML 2 ML VIAL (100 MCG VIAL) ONE (12:54)
[2016-09-20] MEDS ORDERED: Midazolam* 1 MG/ML 2 ML VIAL (2 MG) ONE ×2 (12:54→13:14)
[2016-09-20] MEDS ORDERED: fentaNYL* 50 MCG/ML 2 ML VIAL (100 MCG VIAL) IV PRN (13:26)
[2016-09-20] MEDS ORDERED: Ondansetron INJ* 2 MG/ML VIAL IV PRN (13:26)
[2016-09-20] MEDS ORDERED: Acetaminophen TAB* 325 MG PO PRN (13:26)
[2016-09-20] MEDS ORDERED: HYDROcodone/ACETAMIN 5-325 MG* 1 TAB PO PRN (13:26)
[2016-09-20 15:33] VITALS: BP 108/77
[2016-09-20] MEDS ORDERED: Acetaminophen TAB* 325 MG ONE (15:34)
== END 2016-09-20 16:12 | disposition home or self-care (01) ==
LOC: OR 09:50
PROVIDERS: ATTEND Plastic Surgery
DX: C44.321 Squamous cell carcinoma of skin of nose (principal); I25.10 Atherosclerotic heart disease of native coronary artery without angina pectoris; I25.2 Old myocardial infarction; G20 Parkinson's disease; G47.33 Obstructive sleep apnea (adult) (pediatric); E78.5 Hyperlipidemia, unspecified; Z79.82 Long term (current) use of aspirin; Z85.828 Personal history of other malignant neoplasm of skin; Z95.5 Presence of coronary angioplasty implant and graft
CPT/HCPCS: 88305; 88331; A9270-GY; J0690; J2250; J3010

== ENCOUNTER 2016-12-21 09:27 | Emergency (ER) | payer MEDICARE ==
[2016-12-21] MEDS ORDERED: NS 0.9% 1000 ML* 1,000 ML IV ONE (10:19)
[2016-12-21 10:49] LABS: Hematocrit 49 % (42-52); Hemoglobin 16.3 g/dl (14.0-18.0); Mean Corpuscular HGB Conc 33 g/dl (31-36); Mean Corpuscular Hemoglobin 29 pg (27-31); Mean Corpuscular Volume 87 fL (80-94); Mean Platelet Volume 10 um3 (7.4-10.4); Red Blood Count 5.63 10^6/ul (4.0-5.4); Red Cell Distribution Width 13 % (10.5-15); White Blood Count 11.7 10^3/ul (3.5-10.8)
[2016-12-21 11:12] LABS: Troponin I 0.03 ng/mL (<0.04)
[2016-12-21 11:18] LABS: Albumin 3.6 g/dL (3.2-5.2); BUN/Creatinine Ratio 18.6 (8-20); C Reactive Protein 29.57 mg/L (< 5.00); Calcium 9.3 mg/dL (8.6-10.3); EGFR African American 114.4 (>60); Magnesium 2.2 mg/dL (1.9-2.7); Total Protein 6.6 g/dL (6.4-8.9)
[2016-12-21 11:34] LABS: TSH (Thyroid Stimulating Horm) 0.97 mcIU/mL (0.34-5.60)
[2016-12-21 13:09] LABS: Urine Bacteria Absent (Absent); Urine Bilirubin Negative (Negative); Urine Glucose Negative (Negative); Urine Nitrite Negative (Negative)
--- NOTE | 2016-12-21 13:43 | RAD ---
INDICATION: Cough COMPARISON: April 14, 2016 TECHNIQUE: An AP portable view obtained at 1058 hours is submitted. FINDINGS: Bones/Soft Tissues: There are no acute bony findings. Cardiomediastinal: The cardiomediastinal silhouette is normal. Lungs: There are no infiltrates. Pleura: There are no pleural effusions. Other: None IMPRESSION: NO ACTIVE DISEASE.
[2016-12-21] MEDS ORDERED: Levofloxacin 750 MG IVPREMIX(* 750 MG/150 ML BAG IVPB ONE (14:51)
--- NOTE | 2016-12-21 18:35 | ED ---
Harshad Cunha Gabriel, scribed for Sabino Taylor MD on 12/21/16 at 1015 . Complex/Multi-Sys Presentation - HPI Summary HPI Summary: This patient is a 66 year old M BIBA to [facility] after being sent from [facility]. They claim that he has a cough, fever, and is lethargy. For an unknown time. They also claim he is less responsive than usual. Patient reports being tired, feeling weak, and increased coughing with sputum. Patient denies pain, fever, and nausea. LEVEL 5 CAVEAT: HPI limited due to patient being unresponsive. - History Of Current Complaint Chief Complaint: EDWeakness Time Seen by Provider: 12/21/16 09:59 Hx Obtained From: Patient, Other: - From his prison Onset/Duration: Still Present Timing: Constant Associated Signs And Symptoms: Positive: Weakness, Cough - with sputum, Remote Trauma, Other - Lethargic NEGATIVE: pain. Negative: Nausea, Fever - Allergies/Home Medications Allergies/Adverse Reactions: Allergies Allergy/AdvReac Type Severity Reaction Status Date / Time Pollen Extract Allergy Intermediate eye Verified 09/20/16 10:17 irritation, sneezing , runny nose Bee Venom Allergy Unknown Swelling Verified 09/20/16 10:17 Adhesives Allergy Mild Itching Uncoded 09/20/16 10:17 Home Medications: Home Medications Apoaequorin [Prevagen] 10 mg PO QAM 12/21/16 [History Confirmed 12/21/16] Bisacodyl SUPP* [Dulcolax Supp*] 10 mg MS DAILY PRN 12/21/16 [History Confirmed 12/21/16] Carbidopa/Levodop 25/100 MG(*) [Sinemet 25/100 TAB(*)] 1 tab PO TID 12/21/16 [ History Confirmed 12/21/16] Coenzyme Q10 (Ubidecarenone) [Co Q-10] 200 mg PO QAM 12/21/16 [History Confirmed 12/21/16] Magnesium Hydroxide LIQ* [Milk of Magnesia LIQ*] 30 ml PO BEDTIME PRN 12/21/16 [ History Confirmed 12/21/16] Senna TAB* [Senokot TAB*] 2 tab PO BEDTIME 12/21/16 [History Confirmed 12/21/16] PMH/Surg Hx/FS Hx/Imm Hx Previously Healthy: No - LEVEL 5 CAVEAT: PMH limited due to patient being unresponsive. Endocrine/Hematology History: Denies: Hx Anticoagulant Therapy, Hx Diabetes, Hx Systemic Lupus Erythematosus Cardiovascular History: Reports: Hx Coronary Artery Disease, Hx Hypertension, Hx Valvular Heart Disease, Other Cardiovascular Problems/Disorders - heart fibrillation 04/2000 Denies: Hx Congestive Heart Failure, Hx Pacemaker/ICD Respiratory History: Reports: Hx Sleep Apnea - HISTORY OF DOESN'T USE A MACHINE History: Reports: Other Problems/Disorders - enlarged prostate Musculoskeletal History: Denies: Hx Arthritis, Hx Rheumatoid Arthritis, Hx Osteoporosis Sensory History: Reports: Hx Cataracts, Hx Contacts or Glasses, Hx Legally Blind Denies: Hx Hearing Aid Opthamlomology History: Reports: Hx Cataracts, Hx Contacts or Glasses, Hx Legally Blind Neurological History: Reports: Hx Dementia Psychiatric History: Denies: Hx Panic Disorder - Cancer History Cancer Type, Location and Year: skin CA Hx Chemotherapy: No - Surgical History Surgery Procedure, Year, and Place: CHOLECYSECTOMY 2008 [facility] [place] CARDIAC STENT 2000 [facility]. excisional biopsy of skin CA right collar bone, skin ca removed right cheek and skull, cateract surgery 2 yrs ago. RP DISEASE DIGANOSED IN THE YEAR 1979 Hx Anesthesia Reactions: No - Immunization History Date of Tetanus Vaccine: 2014 Date of Influenza Vaccine: 12/08/2015 Infectious Disease History: Unable to Obtain/Confirm Infectious Disease History: Denies: Traveled Outside the [place] in Last 30 Days - Family History Known Family History: Positive: Cardiac Disease - Social History Lives: At [facility]term Alcohol Use: Occasionally Hx Substance Use: No Substance Use Type: Reports: None Hx Tobacco Use: No Smoking Status (MU): Never Smoked Tobacco Review of Systems - ROS Summary Review of Systems Summary: LEVEL 5 CAVEAT: ROS limited due to patient being unresponsive. Constitutional: Other - lethargic Negative: Fever Positive: Cough - with sputum Negative: Nausea Positive: Weakness All Other Systems Reviewed And Are Negative: Yes Physical Exam - Summary Physical Exam Summary: The patient appears weak, is speaks in a halting way and answers slowly. The skin is warm and dry. Patient appears to be pale. HEENT: ~The head is normocephalic and atraumatic. The pupils are equal and reactive. The conjunctivae are clear and without drainage. ~Nares are patent and without drainage. ~Mouth reveals moist mucous membranes and the throat is without erythema and exudate. ~The external ears are intact. The ear canals are patent and without drainage. The tympanic membranes are intact. Neck is supple with full range of motion and non-tender. There are no carotid bruits. ~There is no neck vein distension. Respiratory: Chest is non-tender. ~Lungs are clear to auscultation and breath sounds are symmetrical and equal. Cardiovascular: Heart is regular rate and rhythm. ~There is no murmur or rub auscultated. ~~There is no peripheral edema and pulses are symmetrical and equal. Abdomen: The abdomen is soft and non-tender. ~There are normal bowel sounds heard in all four quadrants and there is no organomegaly palpated. Musculoskeletal: There is no back pain noted. ~Extremities are non-tender with full range of motion. ~There is good capillary refill. ~There is no peripheral edema or calf tenderness elicited. Neurological: Patient is alert and oriented to person, place and time. ~The patient has symmetrical motor strength in all four extremities. ~Cranial nerves are grossly intact. Deep tendon reflexes are symmetrical and equal in all four extremities. Psychiatric: The patient has an appropriate affect and does not exhibit any anxiety or depression LEVEL 5 CAVEAT: PE limited due to patient being unresponsive. Triage Information Reviewed: Yes Vital Signs On Initial Exam: Initial Vitals Temp Pulse Resp BP Pulse Ox 99.1 F 96 18 144/64 97 12/21/16 09:42 12/21/16 09:42 12/21/16 09:42 12/21/16 09:42 12/21/16 09:42 Vital Signs Reviewed: Yes Diagnostics - Vital Signs Vital Signs Temp Pulse Resp BP Pulse Ox 12/21/16 09:42 99.1 F 96 18 144/64 97 - Laboratory Lab Results: Lab Results 12/21/16 12/21/16 12/21/16 Range/Units 10:31 10:31 10:31 WBC 11.7 H (3.5-10.8) 10^3/ul RBC 5.63 H (4.0-5.4) 10^6/ul Hgb 16.3 (14.0-18.0) g/dl Hct 49 (42-52) % MCV 87 (80-94) fL MCH 29 (27-31) pg MCHC 33 (31-36) g/dl RDW 13 (10.5-15) % Plt Count 221 (150-450) 10^3/ul MPV 10 (7.4-10.4) um3 Neut % (Auto) 83.2 H (38-83) % Lymph % (Auto) 7.1 L (25-47) % [place] % (Auto) 9.0 (1-9) % Eos % (Auto) 0.3 (0-6) % Baso % (Auto) 0.4 (0-2) % Absolute Neuts (auto) 9.8 H (1.5-7.7) 10^3/ul Absolute Lymphs (auto) 0.8 L (1.0-4.8) 10^3/ul Absolute Monos (auto) 1.1 H (0-0.8) 10^3/ul Absolute Eos (auto) 0 (0-0.6) 10^3/ul Absolute Basos (auto) 0 (0-0.2) 10^3/ul Absolute Nucleated RBC 0 10^3/ul Nucleated RBC % 0 Sodium 142 (133-145) mmol/L Potassium 4.0 (3.5-5.0) mmol/L Chloride 109 (101-111) mmol/L Carbon Dioxide 26 (22-32) mmol/L Anion Gap 7 (2-11) mmol/L BUN 16 (6-24) mg/dL Creatinine 0.86 (0.67-1.17) mg/dL Est GFR ( Amer) 114.4 (>60) Est GFR (Non-Af Amer) 89.0 (>60) BUN/Creatinine Ratio 18.6 (8-20) Glucose 128 H (70-100) mg/dL Lactic Acid 1.8 (0.5-2.0) mmol/L Calcium 9.3 (8.6-10.3) mg/dL Magnesium 2.2 (1.9-2.7) mg/dL Total Bilirubin 1.00 (0.2-1.0) mg/dL AST 55 H (13-39) U/L ALT 27 (7-52) U/L Alkaline Phosphatase 62 (34-104) U/L Troponin I 0.03 (<0.04) ng/mL C-Reactive Protein 29.57 H (< 5.00) mg/L Total Protein 6.6 (6.4-8.9) g/dL Albumin 3.6 (3.2-5.2) g/dL Globulin 3.0 (2-4) g/dL Albumin/Globulin Ratio 1.2 (1-3) TSH 0.97 (0.34-5.60) mcIU/mL Urine Color Urine Appearance Urine pH (5-9) Ur Specific [place] (1.010-1.030) Urine Protein (Negative) Urine Ketones (Negative) Urine Blood (Negative) Urine Nitrate (Negative) Urine Bilirubin (Negative) Urine Urobilinogen (Negative) Ur Leukocyte Esterase (Negative) Urine WBC (Auto) (Absent) Urine RBC (Auto) (Absent) Urine Bacteria (Absent) Urine Glucose (Negative) 12/21/16 Range/Units 12:22 WBC (3.5-10.8) 10^3/ul RBC (4.0-5.4) 10^6/ul Hgb (14.0-18.0) g/dl Hct (42-52) % MCV (80-94) fL MCH (27-31) pg MCHC (31-36) g/dl RDW (10.5-15) % Plt Count (150-450) 10^3/ul MPV (7.4-10.4) um3 Neut % (Auto) (38-83) % Lymph % (Auto) (25-47) % [place] % (Auto) (1-9) % Eos % (Auto) (0-6) % Baso % (Auto) (0-2) % Absolute Neuts (auto) (1.5-7.7) 10^3/ul Absolute Lymphs (auto) (1.0-4.8) 10^3/ul Absolute Monos (auto) (0-0.8) 10^3/ul Absolute Eos (auto) (0-0.6) 10^3/ul Absolute Basos (auto) (0-0.2) 10^3/ul Absolute Nucleated RBC 10^3/ul Nucleated RBC % Sodium (133-145) mmol/L Potassium (3.5-5.0) mmol/L Chloride (101-111) mmol/L Carbon Dioxide (22-32) mmol/L Anion Gap (2-11) mmol/L BUN (6-24) mg/dL Creatinine (0.67-1.17) mg/dL Est GFR ( Amer) (>60) Est GFR (Non-Af Amer) (>60) BUN/Creatinine Ratio (8-20) Glucose (70-100) mg/dL Lactic Acid (0.5-2.0) mmol/L Calcium (8.6-10.3) mg/dL Magnesium (1.9-2.7) mg/dL Total Bilirubin (0.2-1.0) mg/dL AST (13-39) U/L ALT (7-52) U/L Alkaline Phosphatase (34-104) U/L Troponin I (<0.04) ng/mL C-Reactive Protein (< 5.00) mg/L Total Protein (6.4-8.9) g/dL Albumin (3.2-5.2) g/dL Globulin (2-4) g/dL Albumin/Globulin Ratio (1-3) TSH (0.34-5.60) mcIU/mL Urine Color Yellow Urine Appearance Clear Urine pH 5.0 (5-9) Ur Specific [place] 1.026 (1.010-1.030) Urine Protein Negative (Negative) Urine Ketones Trace H (Negative) Urine Blood 1+ H (Negative) Urine Nitrate Negative (Negative) Urine Bilirubin Negative (Negative) Urine Urobilinogen Negative (Negative) Ur Leukocyte Esterase Negative (Negative) Urine WBC (Auto) Trace(0-5/hpf) (Absent) Urine RBC (Auto) Trace(0-2/hpf) (Absent) Urine Bacteria Absent (Absent) Urine Glucose Negative (Negative) Result Diagrams: 12/21/16 10:31 12/21/16 10:31 Lab Statement: Any lab studies that have been ordered have been reviewed, and results considered in the medical decision making process. - Radiology CXR Radiology Interpretation Completed By: Radiologist - No active disease. ED physician has reviewed this report and agrees. - EKG 11:52 Cardiac Rate: Tachycardia EKG Rhythm: Sinus Rhythm - 97 BPM EKG Interpretation: vertical axis, VPCs, probable old inferior infarct Complex Multi-Symp Course/Dx Course Of Treatment: Mr. Abrams presented with a history of new onset generalized weakness with a low grade fever. He was found to have a slight leukocytosis and elevation of his CRP. U/A and CXR were unremarkable. He has had a mild productive cough for a few days and I will cover him for early pneumonia. - Diagnoses Differential Diagnoses/HQI/PQRI: Other - Bronchitis Provider Diagnoses: Pneumonia Discharge - Discharge Plan Condition: Stable Disposition: SNF FACILITY Prescriptions: Levofloxacin TAB* [Levaquin TAB*] 750 mg PO DAILY #10 tab Patient Education Materials: Levofloxacin (By mouth), Acute Bronchitis (ED) Referrals: Fernando Red MD [Primary Care Provider] - Additional Instructions: Patient will be discharged with prescription for bronchitis and follow up from Dr. Lemos in 3-4 days. RETURN TO THE EMERGENCY DEPARTMENT FOR CHANGING OR WORSENING SYMPTOMS. The documentation as recorded by the Harshad mancuso Gabriel accurately reflects the service I personally performed and the decisions made by me, Sabino Taylor MD.
[2016-12-21 19:11] VITALS: BP 126/77
== END 2016-12-21 19:12 ==
LOC: ED 09:27
DX: J18.9 Pneumonia, unspecified organism (principal); R53.1 Weakness; R05 Cough
CPT/HCPCS: 36415; 71010; 80053; 81003; 81015; 83605; 83735; 84443; 84484; 85025; 86140; 87040; 93005; 99284